=== PATIENT | female | born 1960 | race Caucasian/White ===

== ENCOUNTER 2017-11-18 09:53 | Outpatient (AMBR) | payer MEDICAID, SELFPAY ==
--- NOTE | 2017-11-18 10:07 | PT.OIERPT ---
PT OP Initial Eval Patient Information Visit Reasons: right radius fracture Medical Diagnosis: S52.502 Treatment Dx #1: B radius FX Start of Care: 11/18/17 Date of Onset: 08/02/17 Initial Assessment Subjective Pt is 57 yr old female who tripped in July and fractured B radius' from tripping and falling onto outstretched arms and she passed out. Pt reports continued pain at 7/10 today and she points to the carpal tunnel and thenar region as site of pain and numbness. The R wrist she can move better and make a fist and it hurts less at 5/10. She needs assistance from for most ADL's but can dress herself. 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 Pt has decreased director cardiology strength B and severe TTP of palmar aspect of B wrists, especially around ORIF scar. Eval followed by HEP with materials. Short Term and Intermediate Goals 1. Ind with HEP 2. Improved wrist flexion and extension to 40 deg 3. Improved director cardiology strength to 45lbs 4. Pt will be independent with all ADL's Treatment Plan Pt doesn't have any Rx visits authorized. Pt would benefit from therapy to decrease pain, improve ROM and address aforementioned impairments. 1. Manual therapy 2. Therex 3. Modalities as indicated, moist heat pack, ice, electrical stimulation Frequency and Duration 2x a week for 6 weeks Certification Dates: 11/18/17 to 02/17/18 Office Procedures PT Procedures PT Date of Service: 11/18/17 OP PT Eval Mod Complex 30 minutes: Yes
--- NOTE | 2017-11-18 10:16 | PTNOTE_ITS ---
PT OP Initial Eval Patient Information Visit Reasons: right radius fracture Medical Diagnosis: S52.502 Treatment Dx #1: B radius FX Start of Care: 11/18/17 Date of Onset: 08/02/17 Initial Assessment Subjective Pt is 57 yr old female who tripped in July and fractured B radius' from tripping and falling onto outstretched arms and she passed out. Pt reports continued pain at 7/10 today and she points to the carpal tunnel and thenar region as site of pain and numbness. The R wrist she can move better and make a fist and it hurts less at 5/10. She needs assistance from for most ADL' s but can dress herself. 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 Pt has decreased online content editor strength B and severe TTP of palmar aspect of B wrists, especially around ORIF scar. Eval followed by HEP with materials. Short Term and Halfway Goals 1. Ind with HEP 2. Improved wrist flexion and extension to 40 deg 3. Improved online content editor strength to 45lbs 4. Pt will be independent with all ADL's Treatment Plan Pt doesn't have any Rx visits authorized. Pt would benefit from therapy to decrease pain, improve ROM and address aforementioned impairments. 1. Manual therapy 2. Therex 3. Modalities as indicated, moist heat pack, ice, electrical stimulation Frequency and Duration 2x a week for 6 weeks Certification Dates: 11/18/17 to 02/17/18 Office Procedures PT Procedures PT Date of Service: 11/18/17 OP PT Eval Mod Complex 30 minutes: Yes
== END 2017-11-25 23:59 ==
PROVIDERS: PCP Family Medicine; Referring Provider Family Medicine; Visit Provider Orthopaedic Surgery
DX: S52.92XD Unspecified fracture of left forearm, subsequent encounter for closed fracture with routine healing (principal); X58.XXXD Exposure to other specified factors, subsequent encounter; S52.91XD Unspecified fracture of right forearm, subsequent encounter for closed fracture with routine healing
CPT/HCPCS: 97162

== ENCOUNTER → 2024-05-17 | Outpatient (CLI) | payer MEDICARE, BC, SELFPAY ==
[2024-05-17 15:24] LABS: Collection Type, Urine Clean Catch
[2024-05-17 16:30] LABS: Bilirubin,Urine Negative (Negative); Blood,Urine Negative (Negative); Clarity,Urine Clear (Clear/Hazy); Color,Urine Yellow (Lt Yel-Yel); Glucose, Urine Negative (Negative); Hyaline Casts,Urine < 1 /hpf (0-1); Ketones,Urine Negative (Negative); Leukocyte Esterase,Urine Positive (Negative); Nitrite,Urine Negative (Negative); Protein,Urine Negative (Neg - Trace); RBC,Urine 4 /hpf (0-3); Specific Gravity,Urine 1.022 (1.001-1.035); Squamous Epithelial Cell,Urine < 1 /hpf (0-5); Urobilinogen,Urine Negative mg/dL (0.0-1.0); WBC,Urine 13 /hpf (0-5)
[2024-05-17 16:51] LABS: Culture Indicated,Urine Yes
== END | disposition home or self-care (01) ==
LOC: SLDO 15:17
PROVIDERS: PCP Family Medicine; Referring Provider Family Medicine; Visit Provider Family Medicine
DX: N39.0 Urinary tract infection, site not specified (principal)
CPT/HCPCS: 81001; 87086

== ENCOUNTER 2024-07-03 16:11 | Emergency (ER) | payer MEDICARE, BC, SELFPAY ==
[2024-07-03 16:21] VITALS: BP 116/76; PULSE 95; RESP 18; TEMP 36.8; O2SAT 95
[2024-07-03 16:25] VITALS: BMI 38.8
--- NOTE | 2024-07-03 16:27 | EDRME_ITS ---
Rapid Medical Screening Exam FORMERLY [facility], [facility]–1983 Arrival date/time: 07/03/24 16:11 64-year-old female with a history of spine surgery, asthma presents to the emergency room with a chief complaint of right-sided flank pain and lower back pain x 3 days. Patient denies dysuria or fevers. I have greeted and performed a focused initial assessment of this patient. A comprehensive ED assessment and evaluation of the patient, analysis of all test results, and completion of the medical decision making process will be conducted by additional ED providers. Chief Complaint: Back Pain/Injury Vital signs: Vital Signs Temperature 98.2 F 07/03/24 16:21 Pulse Rate 95 07/03/24 16:21 Respiratory Rate 18 07/03/24 16:21 Blood Pressure 116/76 07/03/24 16:21 Pulse Oximetry (%) 95 07/03/24 16:21 Oxygen Delivery Method Room Air 07/03/24 16:21 Vital signs reviewed by provider: Yes
--- NOTE | 2024-07-03 16:27 | XR_ITS ---
Examination: CT abdomen and pelvis without contrast. Coronal 3-D reconstructions. Sagittal 2-D reconstructions. Date and time of exam:July 03, 2024 1716 hrs. Comparison 03/02/2004 Indications: Onset right flank pain today, history right renal calculi CTDI: vol (mGy): 25.1 DLP: (mGycm): 1432 Technique: Axial images of the abdomen have been obtained, 3 mm slice thickness Intravenous contrast material has not been administered. Low dose protocols were performed. One or more of the following dose reduction techniques were used; automated exposure control, adjustment of the mA and/or KV according to patient size, use of iterative reconstruction technique. Findings: No focal liver or splenic lesions Absent gallbladder No pancreatic or adrenal mass 2 mm posterior right renal calculus Mild to moderate bilateral renal parenchymal scar formation No hydronephrosis or ureteral calculi Thickening along the umbilical tract Normal appendix No bowel obstruction No diverticulitis Contracted urinary bladder No pelvic mass Severe osteopenia with chronic osteoporotic compressions L2, L1, T11, T10 with large lumbar laminectomy Impression: 2 mm posterior nonobstructing right renal calculus, no hydronephrosis or ureteral calculi
[2024-07-03] MEDS: oxyCODONE/APAP 5/325 TABLET 1 TAB PO (16:47)
[2024-07-03 16:55] LABS: Collection Type, Urine Clean Catch
[2024-07-03 16:55] LABS: Basophils # (Auto) 0.1 Thou/mm3 (0.0-0.2); Basophils % (Auto) 1 % (0-2.5); Eosinophils # (Auto) 0.2 Thou/mm3 (0.0-0.5); Eosinophils % (Auto) 3 % (0-10); Hematocrit 41.9 % (36.0-46.0); Hemoglobin 13.4 g/dL (12.0-16.0); Immature Granulocytes % (Auto) 1 % (0-0); Immature Granulocytes Auto 0.03 Thou/mm3 (0.00-0.00); Lymphocytes # (Auto) 2.3 Thou/mm3 (1.0-4.8); Lymphocytes % (Auto) 37 % (10-50); Mean Corpuscular Hemoglobin 32.3 pg (25.0-35.0); Mean Corpuscular Volume 101 fL (80-100); Monocytes # (Auto) 0.7 Thou/mm3 (0.0-0.8); Monocytes % (Auto) 11 % (0-12); Neutrophils # (Auto) 2.9 Thou/mm3 (1.8-7.7); Neutrophils % (Auto) 47 % (37-80); Nucleated Red Blood Cell % 0 /100 WBC (0); Platelet Count 204 Thou/mm3 (140-440); RDW Standard Deviation 51.8 fL (36.4-46.3); Red Blood Count 4.15 Miln/mm3 (4.00-5.20); White Blood Count 6.2 Thou/mm3 (3.6-11.0)
[2024-07-03 17:12] LABS: Alanine Aminotransferase 19 U/L (10-49); Albumin, Serum 4.6 gm/dL (3.4-4.8); Albumin/Globulin Ratio 1.8 (1.2-2.2); Alkaline Phosphatase 92 U/L (46-116); Anion Gap 6 (7-16); Aspartate Amino Transferase 21 U/L (0-34); BUN/Creatinine Ratio 13 Ratio (12-20); Bilirubin,Total 0.3 mg/dL (0.3-1.2); Blood Urea Nitrogen 18 mg/dL (9-23); Calcium 10.2 mg/dL (8.3-10.6); Calcium (Corrected) 10.2 mg/dL (8.5-10.1); Carbon Dioxide 27.9 mMol/L (20.0-31.0); Chloride 105 mMol/L (98-107); Creatinine (Component) 1.4 mg/dL (0.6-1.3); Estimated Creatinine Clearance 51.1 mL/min (>60); Globulin 2.5 gm/dL (2.3-3.5); Glucose 108 mg/dL (74-106); Lipase 23 U/L (12-53); Osmolality,Calculated 280 (275-295); Potassium 5.4 mMol/L (3.4-5.1); Sodium 139 mMol/L (136-145); Total Protein 7.1 gm/dL (5.7-8.2); eGFR 41 See Note
[2024-07-03 17:30] LABS: Bilirubin,Urine Negative (Negative); Blood,Urine Negative (Negative); Clarity,Urine Clear (Clear/Hazy); Color,Urine Yellow (Lt Yel-Yel); Glucose, Urine Negative (Negative); Ketones,Urine Negative (Negative); Leukocyte Esterase,Urine Positive (Negative); Nitrite,Urine Negative (Negative); Protein,Urine Trace (Neg - Trace); RBC,Urine 3 /hpf (0-3); Specific Gravity,Urine 1.026 (1.001-1.035); Squamous Epithelial Cell,Urine 2 /hpf (0-5); Urobilinogen,Urine Negative mg/dL (0.0-1.0); WBC,Urine 19 /hpf (0-5)
--- NOTE | 2024-07-03 19:31 | EDNOTE_ITS ---
ED General RME/HPI General Chief complaint: Back Pain/Injury Stated complaint: BACK/RIGHT FLANK PAIN Time Seen by Provider: 07/03/24 19:13 Arrival date/time: 07/03/24 16:11 CC: Acute on chronic mid to low back pain with redness and irritation under her breasts and her groin area. Patient has pain medication states it has been mildly relieving it but this has been worse in the last 3 days. Patient had back surgery which included extensive rods and screws 1 year ago stated was doing fine up until several weeks ago has an upcoming appointment with a back surgeon in 3 weeks. Patient is motorized scooter bound, is awake alert oriented. Nontoxic-appearing in mild discomfort but not in any acute distress. RME / HPI RME / HPI narrative: 07/03/24 16:11 64-year-old female with a history of spine surgery, asthma presents to the emergency room with a chief complaint of right-sided flank pain and lower back pain x 3 days. Patient denies dysuria or fevers. I have greeted and performed a focused initial assessment of this patient. A comprehensive ED assessment and evaluation of the patient, analysis of all test results, and completion of the medical decision making process will be conducted by additional ED providers. Related Data Home Medications ?Medication ?Instructions ?Recorded ?Confirmed docusate sodium 100 mg capsule 100 mg PO HS 11/07/22 11/07/22 duloxetine 60 mg capsule,delayed 60 mg PO HS 11/07/22 10/29/23 release furosemide 20 mg tablet 20 mg PO DAILY 11/07/22 11/07/22 hydroxyzine HCl 10 mg tablet 10 mg PO TID PRN Anxiety 11/07/22 11/07/22 lubiprostone 8 mcg capsule 8 mcg PO BID PRN constipation 11/07/22 10/29/23 metronidazole 500 mg tablet 500 mg PO BID 11/07/22 11/07/22 nifedipine 30 mg tablet,extended 30 mg PO DAILY 11/07/22 11/07/22 release pantoprazole 20 mg tablet,delayed 40 mg PO DAILY 11/07/22 10/29/23 release potassium chloride 8 mEq 8 meq PO DAILY 11/07/22 10/29/23 capsule,extended release spironolactone 100 mg tablet 100 mg PO DAILY 11/07/22 10/29/23 venlafaxine 150 mg 150 mg PO DAILY 11/07/22 10/29/23 capsule,extended release 24 hr donepezil 5 mg tablet 5 mg PO HS 10/29/23 10/29/23 estradiol 2 mg tablet 2 mg PO QDAY 10/29/23 10/29/23 gabapentin 400 mg capsule mg 10/29/23 levothyroxine 25 mcg tablet mcg 10/29/23 (Synthroid) montelukast 10 mg tablet 10 mg PO HS 10/29/23 10/29/23 oxycodone-acetaminophen 10 mg-325 10 - 325 tab PO Q6HR PRN Pain 10/29/23 10/29/23 mg tablet (Scale Score 4-6) propranolol 10 mg tablet 10 mg PO HS 10/29/23 10/29/23 ropinirole 2 mg tablet 2 mg PO TID 10/29/23 10/30/23 spironolactone 100 mg tablet mg 10/29/23 trazodone 300 mg tablet 300 mg PO HS PRN depression 10/29/23 10/29/23 Previous Rx's ?Medication ?Instructions ?Recorded diphenhydramine HCl 50 mg capsule 50 mg PO Q8H PRN itching #20 caps 12/27/22 polyethylene glycol 3350 17 gram 17 g PO QDAY 30 days #30 ea 10/31/23 oral powder packet (HealthyLax) nystatin 100,000 unit/gram topical 1 applic topical QDAY #60 grams 07/03/24 powder Allergies Allergy/AdvReac Type Severity Reaction Status Date / Time ceftriaxone Allergy Severe SWELLING Verified 04/28/24 18:28 TO LIPS, VOMITING, NAUSEA ibuprofen Allergy Severe SWELLING Verified 04/28/24 18:28 linezolid Allergy Severe ABD Verified 04/28/24 18:28 CRAMPING, N/V/D mushroom Allergy Severe VOMITING Verified 04/28/24 18:28 NSAIDS (Non-Steroidal Allergy Severe SWELLING, Verified 04/28/24 18:28 Anti-Inflamma SOB ondansetron Allergy Severe REDNESS Verified 04/28/24 18:28 AND PAIN AT SITE Penicillins Allergy Severe CAN'T Verified 04/28/24 18:28 BREATHE shellfish derived Allergy Severe Difficulty Verified 04/28/24 18:28 Breathing Sulfa (Sulfonamide Allergy Severe RASH Verified 04/28/24 18:28 Antibiotics) ciprofloxacin [From Cipro] Allergy Intermediate Redness of Verified 04/28/24 18:28 Skin erythromycin base Allergy Intermediate RASH Verified 04/28/24 18:28 doxycycline Allergy Mild Abdominal Verified 04/28/24 18:28 Pain iodine Allergy Mild SOB, Verified 04/28/24 18:28 THROAT SWELLING, HIVES, VOMITING Review of Systems Review of Systems Narrative Review of Systems: GEN: No fever, no chills, no weight loss EYES: No discharge, no visual changes, no pain HEENT: No ear pain, no congestion, no sore throat PULM: No shortness of breath, no cough, no congestion CV: No chest pain, no dyspnea on exertion, no palpitations GI: No nausea, no vomiting, no diarrhea, no pain, no constipation : No frequency, no urgency, no dysuria MUSC/SKEL: No joint pain, chronic back pain SKIN: No rash PSYCH: No hallucinations, no depression HEME/LYMPH: No easy bleeding or bruising tendencies NEURO: No weakness, no headache Past Medical History Past Medical History NEUROLOGIC: Positive Neurological Disorders, Cerebrovascular Accident, Transient Ischemic Attacks (TIA) (per pt recalls having one many years ago), Seizures (over 5 years), Head Trauma and Spinal Cord Injury; Negative Dementia, Alzheimer's Disease, Parkinson's Disease, Brain Tumor, Meningitis, Epilepsy, Multiple Sclerosis, Cerebral Palsy, Amyotrophic Lateral Sclerosis (ALS/Cookie Gehrig's), Guillain-[place] Syndrome, Spina Bifida, Paralysis, Peripheral Neuropathy, Mcknight's Palsy, Subdural Hematoma, Migraine or Traumatic Brain Injury CARDIAC: Positive Edema, Cellulitis, Deep Vein Thrombosis (per pt its been over 5 years) and Hypertension; Negative Cardiac Disorders, Myocardial Infarction, Cardiac Arrhythmia, Atrial Fibrillation, Angina, Heart Murmur, Coronary Artery Disease, Atherosclerotic Heart Disease, Peripheral Vascular Disease, Hypercholesterolemia, Aneurysm, Congestive Heart Failure, Congenital Heart Disease, Valvular Heart Disease, Rheumatic Fever, Cardiomyopathy, Pericarditis, Hypotension or Varicose Veins RESPIRATORY: Positive Asthma (Asthma) and Pneumonia; Negative Chronic Obstructive Pulmonary Disease (COPD), Bronchitis, Emphysema, Pulmonary Fibrosis, Cystic Fibrosis, Tuberculosis, Pulmonary Embolism, Pulmonary Edema or Sleep Apnea GASTROINTESTINAL: Positive Gastrointestinal Disorders, Obstructive Bowel, Hiatal Hernia and Obesity; Negative Hepatitis, Cirrhosis, Pancreatitis, Celiac Disease, Gall Bladder Disease, Gastrointestinal Bleed, Esophageal Varices, Bills's Esophagus, Colitis, Ulcerative Colitis, Diverticulitis, Diverticulosis, Ulcer, Colorectal Cancer, Crohn's Disease, Hemorrhoids or Gastroesophageal Reflux Disease GENITOURINARY: Positive Genitourinary Disorders and Kidney Stones; Negative Renal Disease, Polycystic Kidney Disease, Neurogenic Bladder, Inguinal Hernia, Dialysis, Prostate Cancer or Benign Prostatic Hyperplasia REPRODUCTIVE: Positive Previous Pregnancies; Negative Breast Cancer, Endometriosis, Genital Herpes, Gonorrhea, Pelvic Inflammatory Disease, Syphilis, Testicular Cancer or Uterine Prolapse MUSCULOSKELETAL: Positive Musculoskeletal Disorders, Arthritis, Degenerative Disk Disease, Carpal Tunnel Syndrome, Fibromyalgia and Fractures (back surgeries); Negative Muscular Dystrophy, Myasthenia Gravis, Marfan's Syndrome, Bone Cancer, Rheumatoid Arthritis, Osteoporosis, Gout, Scoliosis, Degenerative Joint Disease, Osteomyelitis or Poliovirus ENT: Positive Head Trauma; Negative Cataracts, Glaucoma, Blind, Retinal Detachment, Macular Degeneration, Ear Infection, Deafness or Eye Prosthesis ENDOCRINE: Positive Hyperthyroidism; Negative Endocrine Disorders, Diabetes Mellitus Type 1, Diabetes Mellitus Type 2, Hypoglycemia, Jared's Syndrome, [place]'s Disease, Hypothyroidism, Parathyroid Disease, Pituitary Disease, Systemic Lupus Erythematosus, Syndrome of Inappropriate Antidiuretic Hormone (SIADH), Adrenal Disease or Graves' Disease HEMATOLOGIC: Positive Blood Disorders, Anemia and Clotting Problems (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); Negative Leukemia, Hemophilia, Thalassemia or Sickle Cell Disease PSYCHO/SOCIAL: Positive Depression and Anxiety; Negative Psychiatric Problems, Schizophrenia, Recreational Drug Use, Bipolar Disorder, Behavior Problems, Self-Mutilation, Attention Deficit Disorder, Attention Deficit Hyperactivity Disorder, Depression, Post Traumatic Stress Disorder or Eating Disorder OTHER HISTORY: Positive Hospitalization, Falls, Blood Transfusions, Chicken Pox, Measles, Mumps and Rubella ([place] Measles); Negative Autoimmune Disease, Down Syndrome, Autism, Developmental Delay, Blood Transfusion Reaction, Anesthesia Reactions, Organ Transplant, Chemotherapy, Radiation Therapy, Hyperbaric Therapy, MRSA, Vancomycin-Resistant Enterococci, Human Immunodeficiency Virus (HIV), Pertussis, Cancer, Breast Cancer, Cervical Cancer, Colorectal Cancer, Lung Cancer, Ovarian Cancer, Prostate Cancer or Testicular Cancer Family History FAMILY HISTORY: Positive Family Psychiatric Problems, Family Respiratory Disorders, Family Cardiac Disorders, Family Gastrointestinal Problems, Family Cancer and Family Surgery; Negative Family Anesthesia Reaction Surgical History SURGICAL: Positive Ear Surgery, Eye Surgery, Abdominal Surgery, Gastric Bypass Surgery, Bowel Surgery, Joint Replacement, Tubal Ligation and Section; Negative Cardiac Surgery, Open Heart Surgery, Coronary Artery Bypass Graft, Valve Replacement, Vascular Surgery, Coronary Stent, Cardiac Catheterization, Pacemaker, Angiogram, Auto Implanted Cardiovert Defib, Carotid Endarterectomy, Endocrine Surgery, Thyroidectomy, Nose Surgery, Oral Surgery, Tonsillectomy, Adenoidectomy, Cochlear Implant, Corneal Transplant, Throat Surgery, Tracheostomy, Gastrostomy, Nephrectomy, Transurethral Resection, Amputation, Open Reduction Internal Fixation, Arthroscopy, Neurologic Surgery, Brain Shunt, Mastectomy, Lumpectomy, Hysterectomy or Organ Transplant Social History SMOKING STATUS: Never smoker SECOND HAND EXPOSURE: No SUBSTANCE USE: does not use ED Exam Narrative Physical exam: [General: Obese in mild discomfort but not in any acute distress Head normocephalic HEENT: Eyes pupils are PERRLA EOMs are intact all other subsystems within acceptable limits Neck is supple nontender Chest equal chest rise nontender to palpation Respiratory: Clear to auscultation no wheezes crackles or rubs CV: Rate rhythm is regular no murmurs rubs or clicks Abdomen is distended secondary to body habitus soft nontender no masses positive bowel sounds all 4 quadrants Back: No CVA tenderness no spinous process tenderness from cervical spine thoracic and lumbar spine Skin: Erythema edema under both breasts and in the groin area particularly in the folds between the leg and the torso. Back surgical scars clean dry and intact. Otherwise skin is intact no petechiae rash induration ulceration or crepitus Extremities: Moving upper extremities without complication lower extremity the patient is scooter bound, she is able to raise the legs but not without significant back pain. Neurosensory intact in all extremities. Neuro: Awake alert oriented x3 Glascow coma 15 no focal deficits] Course Quality Measures none Orders Category Date Time Status CT abdomen pelvis wo con Stat Exams 07/03/24 16:27 Completed CBC Stat Lab 07/03/24 16:42 Completed CMP [Comprehensive Metabolic Panel] Stat Lab 07/03/24 16:42 Completed Lipase Stat Lab 07/03/24 16:42 Completed UA [Urinalysis] Stat Lab 07/03/24 16:49 Completed Urine Culture Stat Lab 07/03/24 16:49 Received oxyCODONE*/APAP 5/325 ASD [Percocet 5/325] Med 07/03/24 16:27 Discontinued 1 tab PO X1 ONE oxyCODONE/APAP 5/325 [Percocet 5/325] Med 07/03/24 16:36 Discontinued 1 tab PO X1 ONE Vital Signs Vital signs: Vital Signs Temperature 98.2 F 07/03/24 16:21 Pulse Rate 95 07/03/24 16:21 Respiratory Rate 18 07/03/24 16:21 Blood Pressure 116/76 07/03/24 16:21 Pulse Oximetry (%) 95 07/03/24 16:21 Oxygen Delivery Method Room Air 07/03/24 16:21 [facility] Patient data External records reviewed:: [facility] [place] previous records Clinical information provided by:: patient Social determinants that could affect healthcare access:: none Patient has the following chronic illnesses:: Spine surgery hypothyroidism How is presenting disease/condition affected by chronic disease/condition?: e xacerbated by Evaluation data The following diagnostics were reviewed and interpreted by me:: lab results and radiology exam(s) Lab and/or radiology exams considered but not ordered:: CBC shows no acute leukocytosis anemia thrombocytopenia CMP shows a sodium 139 potassium of 5.4 chloride of 105 CO2 of 27.9 BUN of 18 creatinine 1.4 with a glucose of 108. No transaminitis T. bili elevation Lipase is normal Urine is negative sure CT is interpreted by radiology shows a 2 mm nonobstructive stone in the renal pelvis no other acute finding requires emergent or immediate intervention. Interpretation Summary: Chronic back pain, yeast infection Medications Medications considered but not ordered:: None Medication administrations:: Medication Administration History Discontinued Medications Oxycodone/Acetaminophen (Oxycodone/Apap 5/325 Tab (Asd)) 1 tab PO X1 ONE Stop: 07/03/24 16:28 Last Admin: 07/03/24 16:41 Dose: Not Given Documented By: TONYA Non-Admin Reason: Discontinued Oxycodone/Acetaminophen (Oxycodone/Apap 5/325 Tablet) 1 tab PO X1 ONE Stop: 07/03/24 16:37 Last Admin: 07/03/24 16:47 Dose: 1 tab Documented By: TONYA None Consultations Consultation(s) initiated? (list below): No Diagnosis Differential Diagnosis ED Complaint MDM: UTI electrolyte imbalance with chronic pain Most likely diagnosis given after review of the tests above:: Chronic pain yeast infection Admission Indicated Admission indicated?: not indicated Explain why admission is indicated or not indicated:: Stable for outpatient follow-up Admission Request Was there a request for admission?: No Disposition Plan Disposition Plan: Discharge Discharge Attestation Discharge Attestation: The patient and all family members were given an opportunity to ask questions and understood the discharge instructions. Discharge instructions specifically effects, indications for sooner follow up or return to the emergency department, and the expected course of current diagnosis. Patient condition: Stable Medical Decision Making Differential Diagnosis Differential Diagnosis: UTI electrolyte imbalance with chronic pain Lab Data 07/03/24 16:42 07/03/24 16:42 Labs: Lab Results 07/03/24 07/03/24 Range/Units 16:42 16:49 WBC 6.2 (3.6-11.0) Thou/mm3 RBC 4.15 (4.00-5.20) Miln/mm3 Hgb 13.4 (12.0-16.0) g/dL Hct 41.9 (36.0-46.0) % MCV 101 H (80-100) fL MCH 32.3 (25.0-35.0) pg MCHC 32.0 (31.0-37.0) g/dl RDW Std Deviation 51.8 H (36.4-46.3) fL Plt Count 204 (140-440) Thou/mm3 Neut % (Auto) 47 (37-80) % Lymph % (Auto) 37 (10-50) % Oliver % (Auto) 11 (0-12) % Eos % (Auto) 3 (0-10) % Baso % (Auto) 1 (0-2.5) % Neut # (Auto) 2.9 (1.8-7.7) Thou/mm3 Lymph # (Auto) 2.3 (1.0-4.8) Thou/mm3 Oliver # (Auto) 0.7 (0.0-0.8) Thou/mm3 Eos # (Auto) 0.2 (0.0-0.5) Thou/mm3 Baso # (Auto) 0.1 (0.0-0.2) Thou/mm3 Immature Gran # (Auto) 0.03 H (0.00-0.00) Thou/mm3 Absolute Nucleated RBC 0.00 (0.00-0.00) Thou/mm3 Immature Gran % 1 H (0-0) % Nucleated RBC % 0 (0) /100 WBC Sodium 139 (136-145) mMol/L Potassium 5.4 H (3.4-5.1) mMol/L Chloride 105 (98-107) mMol/L Carbon Dioxide 27.9 (20.0-31.0) mMol/L Anion Gap 6 L (7-16) BUN 18 (9-23) mg/dL Creatinine 1.4 H (0.6-1.3) mg/dL Estim Creat Clear Calc 51.1 L (>60) mL/min eGFR 41 L (60 - ) See Note BUN/Creatinine Ratio 13 (12-20) Ratio Glucose 108 H (74-106) mg/dL Calculated Osmolality 280 (275-295) Calcium 10.2 (8.3-10.6) mg/dL Corrected Calcium 10.2 H (8.5-10.1) mg/dL Total Bilirubin 0.3 (0.3-1.2) mg/dL AST 21 (0-34) U/L ALT 19 (10-49) U/L Alkaline Phosphatase 92 (46-116) U/L Total Protein 7.1 (5.7-8.2) gm/dL Albumin 4.6 (3.4-4.8) gm/dL Globulin 2.5 (2.3-3.5) gm/dL Albumin/Globulin Ratio 1.8 (1.2-2.2) Lipase 23 (12-53) U/L Ur Collection Type Clean Catch Urine Color Yellow (Lt Yel-Yel) Urine Clarity Clear (Clear/Hazy) Urine pH 6.0 (5.0-7.0) Ur Specific [place] 1.026 (1.001-1.035) Urine Protein Trace (Neg - Trace) Urine Glucose (UA) Negative (Negative) Urine Ketones Negative (Negative) Urine Blood Negative (Negative) Urine Nitrite Negative (Negative) Urine Bilirubin Negative (Negative) Urine Urobilinogen (Auto) Negative (0.0-1.0) mg/dL Ur Leukocyte Esterase Positive (Negative) Urine RBC 3 (0-3) /hpf Urine WBC 19 H (0-5) /hpf Ur Squamous Epith Cells 2 (0-5) /hpf Urine Bacteria None (None) Discharge Plan Plan Patient Disposition: HOME (Self Care) Patient condition on transfer: Stable Prescriptions/Referrals Prescriptions/Med Rec: New nystatin 100,000 unit/gram powder 1 applic topical QDAY Qty: 60 1RF No Action diphenhydramine HCl 50 mg capsule 50 mg PO Q8H PRN (Reason: itching) Qty: 20 0RF estradiol 2 mg tablet 2 mg PO QDAY Patient Comments: take 1 tablet by mouth once daily trazodone 300 mg tablet 300 mg PO HS PRN (Reason: depression) propranolol 10 mg tablet 10 mg PO HS Patient Comments: take 1 tablet by mouth once daily for TREMORS montelukast 10 mg tablet 10 mg PO HS donepezil 5 mg tablet 5 mg PO HS gabapentin 400 mg capsule Patient Comments: take 1 capsule by mouth every 8 hours if needed for NEUROPATHY oxycodone-acetaminophen 10-325 mg tablet 10 - 325 tab PO Q6HR PRN (Reason: Pain (Scale Score 4-6)) Patient Comments: take 1 tablet by mouth three times a day to four times a day if needed for 30 DAYS ropinirole 2 mg tablet 2 mg PO TID Patient Comments: take 1 tablet by mouth three times a day spironolactone 100 mg tablet Patient Comments: take 1 tablet by mouth once daily levothyroxine [Synthroid] 25 mcg tablet Patient Comments: take 1 tablet by mouth once daily polyethylene glycol 3350 [HealthyLax] 17 gram Powder In Packet 17 g PO QDAY 30 Days Qty: 30 12RF potassium chloride 8 mEq capsule, extended release 8 meq PO DAILY metronidazole 500 mg tablet 500 mg PO BID furosemide 20 mg tablet 20 mg PO DAILY hydroxyzine HCl 10 mg tablet 10 mg PO TID PRN (Reason: Anxiety) venlafaxine 150 mg capsule,extended release 24hr 150 mg PO DAILY Patient Comments: TAKE 1 CAPSULE BY MOUTH EVERY DAY nifedipine 30 mg tablet extended release 30 mg PO DAILY Patient Comments: TAKE 1 TABLET BY MOUTH EVERY DAY lubiprostone 8 mcg capsule 8 mcg PO BID PRN (Reason: constipation ) Patient Comments: TAKE 1 CAPSULE BY MOUTH TWICE A DAY WITH FOOD & WITH WATER spironolactone 100 mg tablet 100 mg PO DAILY Patient Comments: TAKE 1 TABLET BY MOUTH EVERY DAY pantoprazole 20 mg tablet,delayed release (DR/EC) 40 mg PO DAILY Patient Comments: TAKE 2 TABLETS BY MOUTH EVERY DAY NEEDED FOR ACID REFLUX docusate sodium 100 mg capsule 100 mg PO HS Patient Comments: TAKE 1 CAPSULE BY MOUTH EVERY DAY AT BEDTIME NEEDED duloxetine 60 mg capsule,delayed release(DR/EC) 60 mg PO HS Patient Comments: TAKE ONE CAPSULE BY MOUTH ONCE IN THE EVENING. Referrals: Ronda Panchal MD [Primary Care Provider] - In 1 week Problem List Clinical Impression: Chronic back pain, Candidiasis Patient/Caregiver Discharge Instructions Education Materials: ED Back Pain (Acute or Chronic), Candidiasis Vaginal Print Language: [place] Stand Alone Forms: Shana Award Info., Patient Portal Info Letter PA/MOLDING LINE ASSISTANT Supervising Physician PA/MOLDING LINE ASSISTANT Supervising Physician: Michael Lock ENP
== END 2024-07-03 20:11 | disposition home or self-care (01) ==
PROVIDERS: Nurse Practitioner Family; Emergency Provider Emergency Medicine; PCP Family Medicine
DX: N20.0 Calculus of kidney (principal); B37.9 Candidiasis, unspecified; M54.50 Low back pain, unspecified; G89.29 Other chronic pain
CPT/HCPCS: 36415; 74176; 80053; 81001; 83690; 85025; 87086; 99284; A9270

== ENCOUNTER → 2024-09-01 | Outpatient (CLI) | payer MEDICARE, BC, SELFPAY ==
[2024-09-01 16:22] LABS: Amphetamine/Methamp Scrn,U Negative (Negative); Barbiturate Screen,Urine Negative (Negative); Benzodiazepines Screen,Urine Negative (Negative); Benzoylecgonine Screen, Ur Negative (Negative); Fentanyl Screen,Urine Negative (Negative); Opiate Screen,Urine Positive (Negative); THC Screen,Urine Negative (Negative)
== END | disposition home or self-care (01) ==
PROVIDERS: PCP Family Medicine; Referring Provider Family Medicine; Visit Provider Family Medicine
DX: Z79.891 Long term (current) use of opiate analgesic (principal)
CPT/HCPCS: 80307

== ENCOUNTER → 2024-09-01 | Outpatient (CLI) | payer MEDICARE, BC, SELFPAY ==
--- NOTE | 2024-09-01 08:30 | XR_ITS ---
Examination: Screening digital mammography, bilateral Computer aided detection 3-D breast Tomosynthesis, bilateral Date and time of exam: September 01, 20242018 hours Compared to mammograms dating to March 30, 2009 Indication: Screening, patient states left breast pain 8 months, history left breast surgery negative biopsy Technique: Nonmagnified MLO, CC views of the breasts to been obtained, reconstructed from 3-D Tomosynthesis images. R2 computer aided detection program utilized for evaluation of suspicious masses and/or abnormal calcifications. 3-D Tomosynthesis images obtained. Findings: Scattered areas of fibroglandular density. Benign calcifications. No interval suspicious masses Impression: BI-RADS category II: Benign Findings. Recommend 1 year follow-up mammogram. Given the patient's presentation, recommend bilateral breast sonography follow-up
== END | disposition home or self-care (01) ==
PROVIDERS: Referring Provider Family Medicine; Visit Provider Family Medicine
DX: Z12.31 Encounter for screening mammogram for malignant neoplasm of breast (principal); R92.323 Mammographic fibroglandular density, bilateral breasts; R92.1 Mammographic calcification found on diagnostic imaging of breast
CPT/HCPCS: 77063; 77067

== ENCOUNTER → 2024-09-22 | Outpatient (CLI) | payer MEDICARE, BC, SELFPAY ==
--- NOTE | 2024-09-22 12:58 | XR_ITS ---
Examination: Shoulder,right, 3 views Technique: Shoulder AP internal rotation, AP external rotation, Y view shoulder, 3 views Exam date and time :September 14, 2024 1338 hours INDICATIONS: Right shoulder pain beginning 7 months ago FINDINGS: Moderate osteopenia Mild narrowing glenohumeral joint No fracture or shoulder dislocation IMPRESSION: Mild narrowing glenohumeral joint
== END | disposition home or self-care (01) ==
LOC: CDIM 12:53
PROVIDERS: PCP Family Medicine; Referring Provider Family Medicine; Visit Provider Family Medicine
DX: M25.811 Other specified joint disorders, right shoulder (principal)
CPT/HCPCS: 73030

== ENCOUNTER → 2024-10-03 | Outpatient (CLI) | payer MEDICARE, BC, SELFPAY ==
[2024-10-03 15:43] LABS: Collection Type, Urine Clean Catch
[2024-10-03 17:02] LABS: Bilirubin,Urine Negative (Negative); Blood,Urine Negative (Negative); Clarity,Urine Clear (Clear/Hazy); Color,Urine Lt-Yellow (Lt Yel-Yel); Glucose, Urine Negative (Negative); Ketones,Urine Negative (Negative); Leukocyte Esterase,Urine Positive (Negative); Nitrite,Urine Negative (Negative); PH,Urine 6.5 (5.0-7.0); Protein,Urine Negative (Neg - Trace); RBC,Urine 1 /hpf (0-3); Specific Gravity,Urine 1.014 (1.001-1.035); Squamous Epithelial Cell,Urine < 1 /hpf (0-5); Urobilinogen,Urine Negative mg/dL (0.0-1.0); WBC,Urine 3 /hpf (0-5)
== END | disposition home or self-care (01) ==
LOC: COPL 15:36
PROVIDERS: PCP Family Medicine; Referring Provider Physician Assistant; Visit Provider Physician Assistant
DX: N39.0 Urinary tract infection, site not specified (principal)
CPT/HCPCS: 81001; 87086

== ENCOUNTER 2024-10-04 19:18 | Emergency (ER) | payer MEDICARE, BC, SELFPAY ==
[2024-10-04 19:19] VITALS: BMI 41.9
--- NOTE | 2024-10-04 19:29 | EKG_ITS ---
[facility] Test Date: 2024-10-04 Pat Name: ARON CACERES Department: Room: - Gender: Female Machine Maintenance: : 1960 Requested By: Krishna Green Order Number: [id number] Reading MD: Krishna Green Measurements Intervals Twining Rate: 74 P: -67 OR: 133 QRS: 58 QRSD: 88 T: -5 QT: 373 QTc: 415 Interpretive Statements JUNCTIONAL RHYTHM LOW QRS VOLTAGE IN PRECORDIAL LEADS [QRS DEFLECTION < 1.0 mV IN CHEST LEADS] POSSIBLE RIGHT VENTRICULAR CONDUCTION DELAY [RSR (QR) IN V1/V2] POSSIBLE ANTERIOR MYOCARDIAL INFARCTION , PROBABLY OLD [30 ms Q WAVE IN V3/V4, OR R < 0.2 mV IN V4] ABNORMAL RHYTHM ECG Compared to ECG 12/08/2023 12:40:35 Junctional rhythm now present Low QRS voltage now present Myocardial infarct finding now present Sinus rhythm no longer present /store/S0/[id number]
[2024-10-04 19:30] VITALS: BP 139/93; PULSE 74; RESP 20; TEMP 36.7; O2SAT 98
--- NOTE | 2024-10-04 20:02 | XR_ITS ---
Examination: PA chest single view Technique: Upright PA chest single view Exam date and time: October 02, 2024 2017 hrs. Comparison 03/10/2024 Indications: Right-sided chest pain radiating to the abdomen today. Findings: Normal heart size Bilateral subsegmental atelectasis Mild to moderate elevation right hemidiaphragm No pneumonia or pulmonary edema Extensive transpedicular orthopedic hardware overlying thoracic lumbar spine Impression: Bilateral subsegmental atelectasis No pneumonia or pulmonary edema
--- NOTE | 2024-10-04 20:03 | PD.EDADULT ---
ED General RME/HPI General Chief complaint: Back Pain/Injury Stated complaint: RT SIDE BACK PAIN RADIATES TO UPPER ABD Time Seen by Provider: 10/04/24 19:50 Arrival date/time: 10/04/24 19:18 CC: Right-sided back pain, HPI onset 2 days ago progressive increase in severity that she has a recurrence of the same right sided back pain that radiates to the front and under the breast. Patient has chronic back pain issues and has had multiple back surgeries. She is awake alert oriented with a large number of allergies. Patient is nontoxic-appearing at this time Related Data Home Medications ?Medication ?Instructions ?Recorded ?Confirmed docusate sodium 100 mg capsule 100 mg PO HS 11/07/22 11/07/22 duloxetine 60 mg capsule,delayed 60 mg PO HS 11/07/22 10/29/23 release furosemide 20 mg tablet 20 mg PO DAILY 11/07/22 11/07/22 hydroxyzine HCl 10 mg tablet 10 mg PO TID PRN Anxiety 11/07/22 11/07/22 lubiprostone 8 mcg capsule 8 mcg PO BID PRN constipation 11/07/22 10/29/23 metronidazole 500 mg tablet 500 mg PO BID 11/07/22 11/07/22 nifedipine 30 mg tablet,extended 30 mg PO DAILY 11/07/22 11/07/22 release pantoprazole 20 mg tablet,delayed 40 mg PO DAILY 11/07/22 10/29/23 release potassium chloride 8 mEq 8 meq PO DAILY 11/07/22 10/29/23 capsule,extended release spironolactone 100 mg tablet 100 mg PO DAILY 11/07/22 10/29/23 venlafaxine 150 mg 150 mg PO DAILY 11/07/22 10/29/23 capsule,extended release 24 hr donepezil 5 mg tablet 5 mg PO HS 10/29/23 10/29/23 estradiol 2 mg tablet 2 mg PO QDAY 10/29/23 10/29/23 gabapentin 400 mg capsule mg 10/29/23 levothyroxine 25 mcg tablet mcg 10/29/23 (Synthroid) montelukast 10 mg tablet 10 mg PO HS 10/29/23 10/29/23 oxycodone-acetaminophen 10 mg-325 10 - 325 tab PO Q6HR PRN Pain 10/29/23 10/29/23 mg tablet (Scale Score 4-6) propranolol 10 mg tablet 10 mg PO HS 10/29/23 10/29/23 ropinirole 2 mg tablet 2 mg PO TID 10/29/23 10/30/23 spironolactone 100 mg tablet mg 10/29/23 trazodone 300 mg tablet 300 mg PO HS PRN depression 10/29/23 10/29/23 Previous Rx's ?Medication ?Instructions ?Recorded diphenhydramine HCl 50 mg capsule 50 mg PO Q8H PRN itching #20 caps 12/27/22 polyethylene glycol 3350 17 gram 17 g PO QDAY 30 days #30 ea 10/31/23 oral powder packet (HealthyLax) nystatin 100,000 unit/gram topical 1 applic topical QDAY #60 grams 07/03/24 powder Allergies Allergy/AdvReac Type Severity Reaction Status Date / Time ceftriaxone Allergy Severe SWELLING Verified 04/28/24 18:28 TO LIPS, VOMITING, NAUSEA ibuprofen Allergy Severe SWELLING Verified 04/28/24 18:28 linezolid Allergy Severe ABD Verified 04/28/24 18:28 CRAMPING, N/V/D mushroom Allergy Severe VOMITING Verified 04/28/24 18:28 NSAIDS (Non-Steroidal Allergy Severe SWELLING, Verified 04/28/24 18:28 Anti-Inflamma SOB ondansetron Allergy Severe REDNESS Verified 04/28/24 18:28 AND PAIN AT SITE Penicillins Allergy Severe CAN'T Verified 04/28/24 18:28 BREATHE shellfish derived Allergy Severe Difficulty Verified 04/28/24 18:28 Breathing Sulfa (Sulfonamide Allergy Severe RASH Verified 04/28/24 18:28 Antibiotics) ciprofloxacin (From Cipro) Allergy Intermediate Redness of Verified 04/28/24 18:28 Skin erythromycin base Allergy Intermediate RASH Verified 04/28/24 18:28 doxycycline Allergy Mild Abdominal Verified 04/28/24 18:28 Pain iodine Allergy Mild SOB, Verified 04/28/24 18:28 THROAT SWELLING, HIVES, VOMITING Review of Systems Review of Systems Narrative Review of Systems: GEN: No fever, no chills, no weight loss EYES: No discharge, no visual changes, no pain HEENT: No ear pain, no congestion, no sore throat PULM: No shortness of breath, no cough, no congestion CV: No chest pain, no dyspnea on exertion, no palpitations GI: No nausea, no vomiting, no diarrhea, no pain, no constipation : No frequency, no urgency, no dysuria MUSC/SKEL: No joint pain, + back pain SKIN: No rash PSYCH: No hallucinations, no depression HEME/LYMPH: No easy bleeding or bruising tendencies NEURO: No weakness, no headache Past Medical History Past Medical History NEUROLOGIC: Positive Neurological Disorders, Cerebrovascular Accident, Transient Ischemic Attacks (TIA) (per pt recalls having one many years ago), Seizures (over 5 years), Head Trauma and Spinal Cord Injury; Negative Dementia, Alzheimer's Disease, Parkinson's Disease, Brain Tumor, Meningitis, Epilepsy, Multiple Sclerosis, Cerebral Palsy, Amyotrophic Lateral Sclerosis (ALS/Cookie Gehrig's), Guillain-[place] Syndrome, Spina Bifida, Paralysis, Peripheral Neuropathy, Mcknight's Palsy, Subdural Hematoma, Migraine or Traumatic Brain Injury CARDIAC: Positive Edema, Cellulitis, Deep Vein Thrombosis (per pt its been over 5 years) and Hypertension; Negative Cardiac Disorders, Myocardial Infarction, Cardiac Arrhythmia, Atrial Fibrillation, Angina, Heart Murmur, Coronary Artery Disease, Atherosclerotic Heart Disease, Peripheral Vascular Disease, Hypercholesterolemia, Aneurysm, Congestive Heart Failure, Congenital Heart Disease, Valvular Heart Disease, Rheumatic Fever, Cardiomyopathy, Pericarditis, Hypotension or Varicose Veins RESPIRATORY: Positive Asthma (Asthma) and Pneumonia; Negative Chronic Obstructive Pulmonary Disease (COPD), Bronchitis, Emphysema, Pulmonary Fibrosis, Cystic Fibrosis, Tuberculosis, Pulmonary Embolism, Pulmonary Edema or Sleep Apnea GASTROINTESTINAL: Positive Gastrointestinal Disorders, Obstructive Bowel, Hiatal Hernia and Obesity; Negative Hepatitis, Cirrhosis, Pancreatitis, Celiac Disease, Gall Bladder Disease, Gastrointestinal Bleed, Esophageal Varices, Bills's Esophagus, Colitis, Ulcerative Colitis, Diverticulitis, Diverticulosis, Ulcer, Colorectal Cancer, Crohn's Disease, Hemorrhoids or Gastroesophageal Reflux Disease GENITOURINARY: Positive Genitourinary Disorders and Kidney Stones; Negative Renal Disease, Polycystic Kidney Disease, Neurogenic Bladder, Inguinal Hernia, Dialysis, Prostate Cancer or Benign Prostatic Hyperplasia REPRODUCTIVE: Positive Previous Pregnancies; Negative Breast Cancer, Endometriosis, Genital Herpes, Gonorrhea, Pelvic Inflammatory Disease, Syphilis, Testicular Cancer or Uterine Prolapse MUSCULOSKELETAL: Positive Musculoskeletal Disorders, Arthritis, Degenerative Disk Disease, Carpal Tunnel Syndrome, Fibromyalgia and Fractures (back surgeries); Negative Muscular Dystrophy, Myasthenia Gravis, Marfan's Syndrome, Bone Cancer, Rheumatoid Arthritis, Osteoporosis, Gout, Scoliosis, Degenerative Joint Disease, Osteomyelitis or Poliovirus ENT: Positive Head Trauma; Negative Cataracts, Glaucoma, Blind, Retinal Detachment, Macular Degeneration, Ear Infection, Deafness or Eye Prosthesis ENDOCRINE: Positive Hyperthyroidism; Negative Endocrine Disorders, Diabetes Mellitus Type 1, Diabetes Mellitus Type 2, Hypoglycemia, Mccaskill's Syndrome, [place]'s Disease, Hypothyroidism, Parathyroid Disease, Pituitary Disease, Systemic Lupus Erythematosus, Syndrome of Inappropriate Antidiuretic Hormone (SIADH), Adrenal Disease or Graves' Disease HEMATOLOGIC: Positive Blood Disorders, Anemia and Clotting Problems (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); Negative Leukemia, Hemophilia, Thalassemia or Sickle Cell Disease PSYCHO/SOCIAL: Positive Depression and Anxiety; Negative Psychiatric Problems, Schizophrenia, Recreational Drug Use, Bipolar Disorder, Behavior Problems, Self-Mutilation, Attention Deficit Disorder, Attention Deficit Hyperactivity Disorder, Depression, Post Traumatic Stress Disorder or Eating Disorder OTHER HISTORY: Positive Hospitalization, Falls, Blood Transfusions, Chicken Pox, Measles, Mumps and Rubella ([place] Measles); Negative Autoimmune Disease, Down Syndrome, Autism, Developmental Delay, Blood Transfusion Reaction, Anesthesia Reactions, Organ Transplant, Chemotherapy, Radiation Therapy, Hyperbaric Therapy, MRSA, Vancomycin-Resistant Enterococci, Human Immunodeficiency Virus (HIV), Pertussis, Cancer, Breast Cancer, Cervical Cancer, Colorectal Cancer, Lung Cancer, Ovarian Cancer, Prostate Cancer or Testicular Cancer Family History FAMILY HISTORY: Positive Family Psychiatric Problems, Family Respiratory Disorders, Family Cardiac Disorders, Family Gastrointestinal Problems, Family Cancer and Family Surgery; Negative Family Anesthesia Reaction Surgical History SURGICAL: Positive Ear Surgery, Eye Surgery, Abdominal Surgery, Gastric Bypass Surgery, Bowel Surgery, Joint Replacement, Tubal Ligation and Section; Negative Cardiac Surgery, Open Heart Surgery, Coronary Artery Bypass Graft, Valve Replacement, Vascular Surgery, Coronary Stent, Cardiac Catheterization, Pacemaker, Angiogram, Auto Implanted Cardiovert Defib, Carotid Endarterectomy, Endocrine Surgery, Thyroidectomy, Nose Surgery, Oral Surgery, Tonsillectomy, Adenoidectomy, Cochlear Implant, Corneal Transplant, Throat Surgery, Tracheostomy, Gastrostomy, Nephrectomy, Transurethral Resection, Amputation, Open Reduction Internal Fixation, Arthroscopy, Neurologic Surgery, Brain Shunt, Mastectomy, Lumpectomy, Hysterectomy or Organ Transplant Social History SMOKING STATUS: Never smoker SECOND HAND EXPOSURE: No SUBSTANCE USE: does not use ED Exam Narrative Physical exam: [General: Morbidly obese in moderate discomfort but not in any acute distress Head normocephalic HEENT: Within acceptable limits Neck is supple nontender Chest equal chest rise nontender to palpation Respiratory: Clear to auscultation no wheezes crackles or rubs CV: Rate rhythm is regular no murmurs rubs or clicks Abdomen is distended secondary to body habitus soft nontender no masses positive bowel sounds all 4 quadrants Back: No CVA tenderness no spinous process tenderness from cervical spine thoracic and lumbar spine Skin: Intact no petechiae rash induration ulceration or crepitus Extremities: Moving upper extremities without complication lower extremities 3/5 strength. Patient is electric scooter bound. Neuro: Awake alert oriented x3 Glascow coma 15 no focal deficits] Course Quality Measures none Orders Category Date Time Status EKG (ED ONLY) *Do not use* NOW Care 10/04/24 19:29 Completed EKG (ED Only) Stat Exams 10/04/24 19:29 Draft XR chest 1V Stat Exams 10/04/24 20:02 Completed CBC Stat Lab 10/04/24 20:28 Completed CMP [Comprehensive Metabolic Panel] Stat Lab 10/04/24 20:28 Completed oxyCODONE/APAP 5/325 [Percocet 5/325] Med 10/04/24 20:02 Discontinued 2 tab PO X1 ONE Vital Signs Vital signs: Vital Signs Temperature 98.0 F 10/04/24 19:30 Pulse Rate 74 10/04/24 19:30 Respiratory Rate 20 10/04/24 19:30 Blood Pressure 139/93 H 10/04/24 19:30 Pulse Oximetry (%) 98 10/04/24 19:30 Oxygen Delivery Method Room Air 10/04/24 19:30 [facility] Patient data External records reviewed:: [facility] previous records Clinical information provided by:: patient and EMS Social determinants that could affect healthcare access:: none Patient has the following chronic illnesses:: Chronic back pain chronic pain How is presenting disease/condition affected by chronic disease/condition?: exacerbated by Evaluation data The following diagnostics were reviewed and interpreted by me:: lab results and radiology exam(s) Lab and/or radiology exams considered but not ordered:: Chest x-ray shows no acute finding requires emergent or immediate intervention as interpreted by me read by radiology. CBC shows no acute leukocytosis anemia thrombocytopenia CMP shows a creatinine of 1.4 otherwise no other electrolyte imbalances renal impairment transaminitis or T. bili elevation. Interpretation Summary: Patient has acute on chronic known back pain with exacerbation. Medications Medications considered but not ordered:: None Medication administrations:: Medication Administration History Discontinued Medications Oxycodone/Acetaminophen (Oxycodone/Apap 5/325 Tablet) 2 tab PO X1 ONE Stop: 10/04/24 20:03 Last Admin: 10/04/24 20:10 Dose: 2 tab Documented By: AGATHA None Consultations Consultation(s) initiated? (list below): No Diagnosis Differential Diagnosis ED Complaint MDM: Pneumonia back spasm chronic back pain Most likely diagnosis given after review of the tests above:: Acute on chronic back pain Admission Indicated Admission indicated?: not indicated Explain why admission is indicated or not indicated:: Stable for discharge Admission Request Was there a request for admission?: No Disposition Plan Disposition Plan: Discharge Discharge Attestation Discharge Attestation: The patient and all family members were given an opportunity to ask questions and understood the discharge instructions. Discharge instructions specifically effects, indications for sooner follow up or return to the emergency department, and the expected course of current diagnosis. Patient condition: Stable Medical Decision Making Differential Diagnosis Differential Diagnosis: Pneumonia back spasm chronic back pain Lab Data 10/04/24 20:28 10/04/24 20:28 Labs: Lab Results 10/04/24 Range/Units 20:28 WBC 6.0 (3.6-11.0) Thou/mm3 RBC 4.13 (4.00-5.20) Miln/mm3 Hgb 13.5 (12.0-16.0) g/dL Hct 41.1 (36.0-46.0) % MCV 100 (80-100) fL MCH 32.7 (25.0-35.0) pg MCHC 32.8 (31.0-37.0) g/dl RDW Std Deviation 49.6 H (36.4-46.3) fL Plt Count 202 (140-440) Thou/mm3 Neut % (Auto) 41 (37-80) % Lymph % (Auto) 43 (10-50) % [place] % (Auto) 12 (0-12) % Eos % (Auto) 4 (0-10) % Baso % (Auto) 1 (0-2.5) % Neut # (Auto) 2.5 (1.8-7.7) Thou/mm3 Lymph # (Auto) 2.6 (1.0-4.8) Thou/mm3 [place] # (Auto) 0.7 (0.0-0.8) Thou/mm3 Eos # (Auto) 0.2 (0.0-0.5) Thou/mm3 Baso # (Auto) 0.0 (0.0-0.2) Thou/mm3 Immature Gran # (Auto) 0.03 H (0.00-0.00) Thou/mm3 Absolute Nucleated RBC 0.00 (0.00-0.00) Thou/mm3 Immature Gran % 1 H (0-0) % Nucleated RBC % 0 (0) /100 WBC Sodium 139 (136-145) mMol/L Potassium 4.9 (3.4-5.1) mMol/L Chloride 105 (98-107) mMol/L Carbon Dioxide 26.5 (20.0-31.0) mMol/L Anion Gap 8 (7-16) BUN 21 (9-23) mg/dL Creatinine 1.4 H (0.6-1.3) mg/dL Estim Creat Clear Calc 51.6 L (>60) mL/min eGFR 41 L (60 - ) See Note BUN/Creatinine Ratio 15 (12-20) Ratio Glucose 98 (74-106) mg/dL Calculated Osmolality 280 (275-295) Calcium 10.4 (8.3-10.6) mg/dL Corrected Calcium 10.4 H (8.5-10.1) mg/dL Total Bilirubin 0.4 (0.3-1.2) mg/dL AST 23 (0-34) U/L ALT 21 (10-49) U/L Alkaline Phosphatase 84 (46-116) U/L Total Protein 7.2 (5.7-8.2) gm/dL Albumin 4.5 (3.4-4.8) gm/dL Globulin 2.7 (2.3-3.5) gm/dL Albumin/Globulin Ratio 1.7 (1.2-2.2) Discharge Plan Plan Patient Disposition: HOME (Self Care) Patient condition on transfer: Stable Prescriptions/Referrals Prescriptions/Med Rec: No Action diphenhydramine HCl 50 mg capsule 50 mg PO Q8H PRN (Reason: itching) Qty: 20 0RF estradiol 2 mg tablet 2 mg PO QDAY Patient Comments: take 1 tablet by mouth once daily trazodone 300 mg tablet 300 mg PO HS PRN (Reason: depression) propranolol 10 mg tablet 10 mg PO HS Patient Comments: take 1 tablet by mouth once daily for TREMORS montelukast 10 mg tablet 10 mg PO HS donepezil 5 mg tablet 5 mg PO HS gabapentin 400 mg capsule Patient Comments: take 1 capsule by mouth every 8 hours if needed for NEUROPATHY oxycodone-acetaminophen 10-325 mg tablet 10 - 325 tab PO Q6HR PRN (Reason: Pain (Scale Score 4-6)) Patient Comments: take 1 tablet by mouth three times a day to four times a day if needed for 30 DAYS ropinirole 2 mg tablet 2 mg PO TID Patient Comments: take 1 tablet by mouth three times a day spironolactone 100 mg tablet Patient Comments: take 1 tablet by mouth once daily levothyroxine [Synthroid] 25 mcg tablet Patient Comments: take 1 tablet by mouth once daily polyethylene glycol 3350 [HealthyLax] 17 gram Powder In Packet 17 g PO QDAY 30 Days Qty: 30 12RF nystatin 100,000 unit/gram powder 1 applic topical QDAY Qty: 60 1RF potassium chloride 8 mEq capsule, extended release 8 meq PO DAILY metronidazole 500 mg tablet 500 mg PO BID furosemide 20 mg tablet 20 mg PO DAILY hydroxyzine HCl 10 mg tablet 10 mg PO TID PRN (Reason: Anxiety) venlafaxine 150 mg capsule,extended release 24hr 150 mg PO DAILY Patient Comments: TAKE 1 CAPSULE BY MOUTH EVERY DAY nifedipine 30 mg tablet extended release 30 mg PO DAILY Patient Comments: TAKE 1 TABLET BY MOUTH EVERY DAY lubiprostone 8 mcg capsule 8 mcg PO BID PRN (Reason: constipation ) Patient Comments: TAKE 1 CAPSULE BY MOUTH TWICE A DAY WITH FOOD & WITH WATER spironolactone 100 mg tablet 100 mg PO DAILY Patient Comments: TAKE 1 TABLET BY MOUTH EVERY DAY pantoprazole 20 mg tablet,delayed release (DR/EC) 40 mg PO DAILY Patient Comments: TAKE 2 TABLETS BY MOUTH EVERY DAY NEEDED FOR ACID REFLUX docusate sodium 100 mg capsule 100 mg PO HS Patient Comments: TAKE 1 CAPSULE BY MOUTH EVERY DAY AT BEDTIME NEEDED duloxetine 60 mg capsule,delayed release(DR/EC) 60 mg PO HS Patient Comments: TAKE ONE CAPSULE BY MOUTH ONCE IN THE EVENING. Referrals: Ronda Panchal MD [Primary Care Provider] - In 1 week Problem List Clinical Impression: Back pain Patient/Caregiver Discharge Instructions Other Activity Instructions:: There is no acute finding on your x-ray or laboratory results that you suspect this is chronic back pain with an acute exacerbation please take your pain medications as home as prescribed if there is a worsening of symptoms follow-up with your primary care doctor or pain management. Education Materials: ED Back and Neck Pain, General Print Language: Italian Stand Alone Forms: Shana Award Info., Work/School Release, Patient Portal Info Letter PA/MARY Supervising Physician PA/MARY Supervising Physician: Michael Lock ENP
[2024-10-04] MEDS: oxyCODONE/APAP 5/325 TABLET 2 TAB PO (20:10)
[2024-10-04 20:48] LABS: Basophils % (Auto) 1 % (0-2.5); Eosinophils # (Auto) 0.2 Thou/mm3 (0.0-0.5); Eosinophils % (Auto) 4 % (0-10); Hematocrit 41.1 % (36.0-46.0); Hemoglobin 13.5 g/dL (12.0-16.0); Immature Granulocytes % (Auto) 1 % (0-0); Immature Granulocytes Auto 0.03 Thou/mm3 (0.00-0.00); Lymphocytes # (Auto) 2.6 Thou/mm3 (1.0-4.8); Lymphocytes % (Auto) 43 % (10-50); Mean Corpuscular HGB Conc 32.8 g/dl (31.0-37.0); Mean Corpuscular Hemoglobin 32.7 pg (25.0-35.0); Mean Corpuscular Volume 100 fL (80-100); Monocytes # (Auto) 0.7 Thou/mm3 (0.0-0.8); Monocytes % (Auto) 12 % (0-12); Neutrophils # (Auto) 2.5 Thou/mm3 (1.8-7.7); Neutrophils % (Auto) 41 % (37-80); Nucleated Red Blood Cell % 0 /100 WBC (0); Platelet Count 202 Thou/mm3 (140-440); RDW Standard Deviation 49.6 fL (36.4-46.3); Red Blood Count 4.13 Miln/mm3 (4.00-5.20)
[2024-10-04 20:57] LABS: Alanine Aminotransferase 21 U/L (10-49); Albumin, Serum 4.5 gm/dL (3.4-4.8); Albumin/Globulin Ratio 1.7 (1.2-2.2); Alkaline Phosphatase 84 U/L (46-116); Anion Gap 8 (7-16); Aspartate Amino Transferase 23 U/L (0-34); BUN/Creatinine Ratio 15 Ratio (12-20); Bilirubin,Total 0.4 mg/dL (0.3-1.2); Blood Urea Nitrogen 21 mg/dL (9-23); Calcium 10.4 mg/dL (8.3-10.6); Calcium (Corrected) 10.4 mg/dL (8.5-10.1); Carbon Dioxide 26.5 mMol/L (20.0-31.0); Chloride 105 mMol/L (98-107); Creatinine (Component) 1.4 mg/dL (0.6-1.3); Estimated Creatinine Clearance 51.6 mL/min (>60); Globulin 2.7 gm/dL (2.3-3.5); Glucose 98 mg/dL (74-106); Osmolality,Calculated 280 (275-295); Potassium 4.9 mMol/L (3.4-5.1); Sodium 139 mMol/L (136-145); Total Protein 7.2 gm/dL (5.7-8.2); eGFR 41 See Note
[2024-10-04 22:29] VITALS: BP 140/76; PULSE 86; RESP 16; TEMP 36.7; O2SAT 98
== END 2024-10-04 22:31 | disposition home or self-care (01) ==
PROVIDERS: Registered Nurse General Practice; Emergency Provider Emergency Medicine; PCP Family Medicine
DX: M54.9 Dorsalgia, unspecified (principal); G89.29 Other chronic pain
CPT/HCPCS: 36415; 71045; 80053; 85025; 93005; 99283; A9270

== ENCOUNTER 2024-11-26 16:22 | Emergency (ER) | payer MEDICARE, BC, SELFPAY ==
[2024-11-26 16:23] VITALS: BMI 40.3
[2024-11-26 16:53] VITALS: BP 117/87; PULSE 89; RESP 20; TEMP 37.1; O2SAT 93
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
[2024-11-26 17:52] LABS: Collection Type, Urine Voided
[2024-11-26 18:05] LABS: Bilirubin,Urine Negative (Negative); Blood,Urine Negative (Negative); Clarity,Urine Clear (Clear/Hazy); Color,Urine Yellow (Lt Yel-Yel); Glucose, Urine Negative (Negative); Ketones,Urine Negative (Negative); Leukocyte Esterase,Urine Positive (Negative); Nitrite,Urine Negative (Negative); PH,Urine 5.5 (5.0-7.0); Protein,Urine Negative (Neg - Trace); RBC,Urine 2 /hpf (0-3); Squamous Epithelial Cell,Urine 1 /hpf (0-5); Urobilinogen,Urine Negative mg/dL (0.0-1.0); WBC,Urine 89 /hpf (0-5)
[2024-11-26 18:08] LABS: Basophils % (Auto) 1 % (0-2.5); Eosinophils # (Auto) 0.2 Thou/mm3 (0.0-0.5); Eosinophils % (Auto) 3 % (0-10); Hematocrit 37.9 % (36.0-46.0); Hemoglobin 12.8 g/dL (12.0-16.0); Immature Granulocytes % (Auto) 1 % (0-0); Immature Granulocytes Auto 0.05 Thou/mm3 (0.00-0.00); Lymphocytes # (Auto) 2.1 Thou/mm3 (1.0-4.8); Lymphocytes % (Auto) 26 % (10-50); Mean Corpuscular HGB Conc 33.8 g/dl (31.0-37.0); Mean Corpuscular Hemoglobin 33.3 pg (25.0-35.0); Mean Corpuscular Volume 99 fL (80-100); Monocytes # (Auto) 0.9 Thou/mm3 (0.0-0.8); Monocytes % (Auto) 12 % (0-12); Neutrophils # (Auto) 4.7 Thou/mm3 (1.8-7.7); Neutrophils % (Auto) 58 % (37-80); Nucleated Red Blood Cell % 0 /100 WBC (0); Platelet Count 221 Thou/mm3 (140-440); Red Blood Count 3.84 Miln/mm3 (4.00-5.20)
[2024-11-26 18:08] LABS: Culture Indicated,Urine Yes
[2024-11-26 18:24] LABS: Alanine Aminotransferase 17 U/L (10-49); Albumin, Serum 4.2 gm/dL (3.4-4.8); Albumin/Globulin Ratio 1.8 (1.2-2.2); Alkaline Phosphatase 89 U/L (46-116); Anion Gap 10 (7-16); Aspartate Amino Transferase 19 U/L (0-34); BUN/Creatinine Ratio 16 Ratio (12-20); Bilirubin,Total 0.4 mg/dL (0.3-1.2); Blood Urea Nitrogen 22 mg/dL (9-23); Calcium 9.2 mg/dL (8.3-10.6); Calcium (Corrected) 9.2 mg/dL (8.5-10.1); Carbon Dioxide 25.3 mMol/L (20.0-31.0); Chloride 108 mMol/L (98-107); Creatinine (Component) 1.4 mg/dL (0.6-1.3); Estimated Creatinine Clearance 50.5 mL/min (>60); Globulin 2.3 gm/dL (2.3-3.5); Glucose 121 mg/dL (74-106); Lipase 27 U/L (12-53); Osmolality,Calculated 289 (275-295); Potassium 5.4 mMol/L (3.4-5.1); Sodium 143 mMol/L (136-145); Total Protein 6.5 gm/dL (5.7-8.2); eGFR 41 See Note
[2024-11-26 19:29] VITALS: BP 117/84; PULSE 85; RESP 19; TEMP 37.1; O2SAT 95
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
[2024-11-27] MEDS: HYDROcodone/APAP 5/325 TABLET 1 TAB PO (00:06)
[2024-11-27] MEDS: SODIUM CHLORIDE 0.9% 1000 ML 1,000 ML 999 ML IV (00:08)
[2024-11-27 00:57] LABS: Lactate (Lactic Acid) 0.8 mMol/L (0.4-2.0)
[2024-11-27] MEDS: CIPROFLOXACIN/D5w 400 MG IVPB 400 MG/200 ML BAG 200 MG IV (00:58)
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
--- NOTE | 2024-11-27 01:13 | XR_ITS ---
Examination: CT abdomen and pelvis without contrast. Coronal 3-D reconstructions. Sagittal 2-D reconstructions. Date and time of exam:November 27, 2024 0219 hours Comparison July 03, 2024 INDICATIONS: Onset right flank pain today CTDI: vol (mGy): 18.6 DLP: (mGycm): 1032 Technique: Axial images of the abdomen have been obtained, 3 mm slice thickness Intravenous contrast material has not been administered. Low dose protocols were performed. One or more of the following dose reduction techniques were used; automated exposure control, adjustment of the mA and/or KV according to patient size, use of iterative reconstruction technique. Findings: No focal liver or splenic lesions Absent gallbladder From fatty infiltration throughout the pancreas Mild perinephric stranding 1 mm right renal calculi, no hydronephrosis or ureteral calculi Fluid-filled distended small bowel loops in the anterior abdomen, mild No diverticulitis No bladder mass No pericecal inflammatory change I do not visualize a definite cystitis pattern Extensive thoracolumbar transpedicular stabilization, severe osteopenia, chronic osteoporotic compressions L2, L1, T11 IMPRESSION: Tiny nonobstructing right renal calculi. Perinephric stranding, consider urinary tract infection
[2024-11-27 01:28] VITALS: BP 121/61; PULSE 79; RESP 20; TEMP 36.4; O2SAT 93
[2024-11-27 03:00] VITALS: BP 128/73; PULSE 88; RESP 17; TEMP 36.4; O2SAT 93
[2024-11-27 04:00] VITALS: BP 104/71; PULSE 88; RESP 20; TEMP 36.6; O2SAT 94
--- NOTE | 2024-11-27 04:14 | PC.NURSE ---
CT order has changed to CT without contrast per provider
[2024-11-27] MEDS: HYDROmorphone INJ 2 MG/ML VIAL 0.5 MG IVP (05:07)
--- NOTE | 2024-11-27 05:27 | PRELIM_ITS ---
CT scan of the abdomen and pelvis without intravenous contrast (axial sections with sagittal and coronal reformats). November 27, 2024 0219 hours Clinical History: Right flank pain. Comparison: No prior study is available for comparison. Findings: Gallbladder is surgically absent. The liver has a slightly nodular contour was medicate cirrhosis. Spleen is not enlarged. Pancreas appears atrophic. The adrenals and kidneys are unremarkable except for mild nonspecific bilateral perinephric stranding and tiny nonobstructing nephrolith noted within the right kidney. There is no hydroureteronephrosis. Urinary bladder is of normal partially filled configuration. Reproductive organs are unremarkable. There is postoperative change to the stomach. There is distended small bowel measuring up to 5.5 cm in diameter within the left upper quadrant of the abdomen, just proximal to some surgical anastomotic sutures along small bowel within the left upper quadrant of the abdomen. There is no definite bowel obstruction. Appendix is not definitely visualized. There is no inflammatory change around the cecum. There is no free intraperitoneal air or fluid. There is no abdominal or pelvic lymphadenopathy. Reproductive organs are unremarkable for the patient's age. There are vascular calcifications along the abdominal aorta and branch vessels without aneurysmal dilatation. Prior ventral abdominal wall hernia repair suggested. There is postoperative change to the spine. Old compression fractures noted at the T11, L1, L2 and possibly L4 levels. There is degenerative change in the spine. There is satisfactory position of spinal hardware. There is subsegmental atelectasis within the lung bases. Left anterior descending coronary artery calcification noted. Impression: Tiny nonobstructive nephrolith within the right kidney. No hydroureteronephrosis. Possible cystitis. Prior cholecystectomy. Distended small bowel in the left upper quadrant may be related to postsurgical change of small bowel in this region. No definite bowel obstruction for Report Electronically Signed By: Pasha Lees 11/27/2024 5:26:16 AM [EST]
[2024-11-27 05:40] VITALS: BP 132/86; PULSE 86; RESP 20; TEMP 36.7; O2SAT 94
== END 2024-11-27 05:56 | disposition home or self-care (01) ==
PROVIDERS: Nurse Practitioner Family; Physician Assistant; Emergency Provider Emergency Medicine; PCP Family Medicine
DX: N20.0 Calculus of kidney (principal); N39.0 Urinary tract infection, site not specified
CPT/HCPCS: 51701; 36415; 74176; 80053; 81001; 83605; 83690; 85025; 87040; 87086; 96361; 96365; 96375; 99284; J0744; J1171; J7030; A9270

== ENCOUNTER 2024-12-07 17:36 | Emergency (ER) | payer MEDICARE, BC, SELFPAY ==
[2024-12-07 17:38] VITALS: BMI 39.9
[2024-12-07 18:17] VITALS: BP 117/76; PULSE 71; RESP 20; TEMP 36.7; O2SAT 100
--- NOTE | 2024-12-07 18:20 | XR_ITS ---
Examination: CT chest, without intravenous contrast. Sagittal and coronal 2-D reconstructions. Exam date and time: December 07, 2024 1837 hours INDICATIONS: Patient fell last week with injury to the back and right chest, chest pain and rib pain CTDI:vol (mGy) 26 DLP: (mGycm) 772 Technique: Multiple 3.0 mm axial sections of the chest to been obtained. Bone and lung density settings are obtained. Sagittal and coronal 2-D reconstructions have been obtained. Low dose protocols were performed. One or more of the following dose reduction techniques were used; automated exposure control, adjustment of the mA and/or KV according to patient size, use of iterative reconstruction technique. Findings: AP dimension thoracic aorta 3.9 cm Thoracic aorta pulmonary arteries appear intact on this noncontrast study Mild atelectasis in both lungs No pneumothorax No hemothorax Nondisplaced fracture right fifth rib anteriorly Old left-sided rib fractures The manubrium and the body of the sternum appear intact No acute thoracic vertebral body compression fracture Extensive transpedicular thoracolumbar stabilization with posterior fusion material Mild enlargement cardiac contour Prominent calcification left anterior descending coronary artery No liver or splenic laceration, again on this noncontrast study Absent gallbladder Atrophic pancreas IMPRESSION: Acute nondisplaced fracture anterior right fifth rib Thoracic aorta pulmonary arteries appear intact No pneumothorax pulmonary contusion or hemothorax Liver spleen partly visualized no laceration
--- NOTE | 2024-12-07 18:20 | XR_ITS ---
Examination: CT lumbar spine, without contrast. 2-D sagittal reconstructions. 2-D coronal reconstructions. 3-D reconstructions. Date and time of exam:December 07, 2024 1837 hours Comparison January 08, 2024 INDICATIONS: Patient fell last week with injury to lower back, lower back pain, history prior vertebral body fractures with spinal surgery 8 months ago CTDI: vol (mGy):73 DLP: (mGycm):2323 Technique: Multiple 1.25 mm axial sections of the abdomen is contrast have been obtained. 2-D sagittal and coronal reconstructions have been obtained. 3-D reconstructions have been obtained. Low dose protocols were performed. One or more of the following dose reduction techniques were used; automated exposure control, adjustment of the mA and/or KV according to patient size, use of iterative reconstruction technique. Findings: Severe osteopenia Again noted extensive thoracolumbar stabilization which is centered about chronic compressions L2, L1, T11 stable in appearance compared to the prior study No acute lumbar fracture Extensive artifacts from the patient's transpedicular fixation screws IMPRESSION: Again noted extensive thoracolumbar stabilization with chronic osteoporotic compression fractures No acute lumbar fracture
--- NOTE | 2024-12-07 18:20 | XR_ITS ---
Examination: CT thoracic spine, without contrast. 2-D sagittal reconstructions. 2-D coronal reconstructions. 3-D reconstructions. Date and time of exam:December 07, 2024 1837 hours Comparison December 06, 2023 INDICATIONS: Patient fell one week ago with injury to the back, back pain, back surgery 8 months ago CTDI: vol (mGy):51.7 DLP: (mGycm):1769 Technique: Multiple 1.25 mm axial sections of the thoracic spine without intravenous contrast have been obtained. 2-D sagittal and coronal reconstructions have been obtained. 3-D reconstructions have been obtained. Low dose protocols were performed. One or more of the following dose reduction techniques were used; automated exposure control, adjustment of the mA and/or KV according to patient size, use of iterative reconstruction technique. Findings: Severe osteopenia Extensive thoracolumbar transpedicular stabilization centered around chronic osteoporotic compressions L2, L1, T11 No acute thoracic vertebral body compression fracture Extensive posterior fusions IMPRESSION: No acute thoracic fracture
--- NOTE | 2024-12-07 18:21 | EDNOTE_ITS ---
<Statement entered by Zakia Gutierrez MD - 12/08/24 18:31> As co-signing physician, I was present and available for consult prn. I concur with the plan and care as documented by the midlevel provider. ED Fall Injury RME/HPI General Chief Complaint: Fall Stated Complaint: FELL 1 WK AGO ON R) SIDE; SEVERE BACK/RIB PAIN Time Seen by Provider: 12/07/24 18:19 Arrival date/time: 12/07/24 17:36 RME / HPI RME / HPI Narrative: 64-year-old female patient came in for evaluation regarding ground-level fall. Patient has significant thoracolumbar surgery, several months ago, but a week ago patient sustained a ground-level fall and now complaining of right sided rib pain, worsening thoracic pain and worsening lumbar pain, patient told me that despite her Dilaudid pump she still having 10 out of 10 pain. Patient is denying any other injury. No LOC during the time of the incident. Denies any headache right now. Denies any bladder incontinence. Denies any bowel incontinence. Denies any saddle anesthesia. Related Data Home Medications ?Medication ?Instructions ?Recorded ?Confirmed docusate sodium 100 mg capsule 100 mg PO HS 11/07/22 0 11/07/22 duloxetine 60 mg capsule,delayed 60 mg PO HS 11/07/22 10/29/23 release furosemide 20 mg tablet 20 mg PO DAILY 11/07/2210/26 hydroxyzine HCl 10 mg tablet 10 mg PO TID PRN Anxiety 11/07/22 11/07/22 lubiprostone 8 mcg capsule 8 mcg PO BID PRN constipati on 11/07/22 10/29/23 metronidazole 500 mg tablet 500 mg PO BID 11/07/22 nifedipine 30 mg tablet,extended 30 mg PO DAILY 11/07/22 release pantoprazole 20 mg tablet,delayed 40 mg PO DAILY 11/0710/29/23 release potassium chloride 8 mEq 8 meq PO DAILY 11/07/2209/18 capsule,extended release spironolactone 100 mg tablet 100 mg PO DAILY 11/07/22 10/29/23 venlafaxine 150 mg 150 mg PO DAILY 11/07/2209/18 capsule,extended release 24 hr donepezil 5 mg tablet 5 mg PO HS 10/29/23 10/29/23 estradiol 2 mg tablet 2 mg PO QDAY 10/29/23 gabapentin 400 mg capsule mg 10/29/23 levothyroxine 25 mcg tablet mcg 10/29/23 (Synthroid) montelukast 10 mg tablet 10 mg PO HS 10/29/23 4 oxycodone-acetaminophen 10 mg-325 10 - 325 tab PO Q6HR PRN Pain 10/29/23 10/29/23 mg tablet (Scale Score 4-6) propranolol 10 mg tablet 10 mg PO HS 10/29/23 4 ropinirole 2 mg tablet 2 mg PO TID 10/29/23 4 spironolactone 100 mg tablet mg 10/29/23 trazodone 300 mg tablet 300 mg PO HS PRN depression 10/29/23 10/29/23 Previous Rx's ?Medication ?Instructions ?Recorded diphenhydramine HCl 50 mg capsule 50 mg PO Q8H PRN itc anderson #20 caps 12/27/22 polyethylene glycol 3350 17 gram 17 g PO QDAY 30 days #30 ea 10/31/23 oral powder packet (HealthyLax) nystatin 100,000 unit/gram topical 1 applic topical QD AY #60 grams 07/03/24 powder ciprofloxacin HCl 500 mg tablet 500 mg PO BID Urinary tract 11/27/24 (Cipro) infection #14 tabs cyclobenzaprine 10 mg tablet 10 mg PO TID PRN muscle s pasm #30 12/07/24 tabs lidocaine 5 % topical patch 1 patch topical QDAY #15 e a 12/07/24 Allergies Allergy/AdvReac Type Severity Reaction Status Date / Time ceftriaxone Allergy Severe SWELLING Verified 12/07/24 17:40 TO LIPS, VOMITING, NAUSEA ibuprofen Allergy Severe SWELLING Verified 12/07/24 17:40 linezolid Allergy Severe ABD Verified 12/07/24 17:40 CRAMPING, N/V/D mushroom Allergy Severe VOMITING Verified 12/07/24 17:40 NSAIDS (Non-Steroidal Allergy Severe SWELLING, Verified 12/07/24 17:40 Anti-Inflamma SOB ondansetron Allergy Severe REDNESS Verified 12/07/24 17:40 AND PAIN AT SITE Penicillins Allergy Severe CAN'T Verified 12/07/24 17:40 BREATHE shellfish derived Allergy Severe Difficulty Verified 12/07/24 17:40 Breathing Sulfa (Sulfonamide Allergy Severe RASH Verified 12/07/24 17:40 Antibiotics) ciprofloxacin (From Cipro) Allergy Intermediate Redness of Verified 12/07/24 17:40 Skin erythromycin base Allergy Intermediate RASH Verified 12/07/24 17:40 doxycycline Allergy Mild Abdominal Verified 12/07/24 17:40 Pain iodine Allergy Mild SOB, Verified 12/07/24 17:40 THROAT SWELLING, HIVES, VOMITING Review of Systems Review of Systems Narrative Review of Systems: Review of system reviewed and within normal limits except mentioned in HPI ED Exam Narrative Physical exam: VITAL SIGNS: Reviewed. GENERAL APPEARANCE: Alert and interactive, follows commands, no acute distress, HEAD AND FACE: Non-traumatic. ENT: PERRL, pink conjunctivitis, eyelid no trauma, Mucous membrane moist. NECK: Supple, nontender, no nuchal rigidity. CHEST: No tenderness, no crepitus, no paradoxical movement, no retractions. LUNGS: Clear, well ventilated, symmetric, no rales, no wheezing, no ronchi, no stridor, good breath sounds bilaterally. HEART: Regular rate, regular rhythm, no murmur, no gallops. ABDOMEN: Soft, positive bowel sounds, nondistended, no guarding, nontender, no rebound, no masses, RECTAL: Deferred. GENITAL: Deferred. NEUROLOGICAL: Gross motor function intact sensory function intact, Appropriate for age. MUSCULOSKELETAL: Upper back/low back tenderness, full range of motion. EXTREMITIES: Nontender, full range of motion. SKIN: Color pink, dry, no rash, no lacerations, no abrasions, no contusions. LYMPHATICS: Deferred. Course Quality Measures none Orders Category Date Time Status CT chest wo con Stat Exams 12/07/24 18:[address] lumbar spine wo con Stat Exams 12/07/24 18:[address] thoracic spine wo con Stat Exams 12/07/24 18:20 Completed CYCLObenzaPRINE [Flexeril] Med 12/07/24 18:20 Discontinued 10 mg PO X1 ONE HYDROmorphone INJ [Dilaudid Inj] Med 12/07/24 18:20 Discontinued 1 mg IM X1 ONE Vital Signs Vital signs: Vital Signs Temperature 98.0 F 12/07/24 18:17 Pulse Rate 71 12/07/24 18:17 Respiratory Rate 20 12/07/24 18:17 Blood Pressure 117/76 12/07/24 18:17 Pulse Oximetry (%) 100 12/07/24 18:17 Oxygen Delivery Method Room Air 12/07/24 18:17 Fall [facility] Narrative [facility] Narrative:: 64-year-old female patient came in for evaluation regarding ground-level fall. Patient has significant thoracolumbar surgery, several months ago, but a week ago patient sustained a ground-level fall and now complaining of right sided rib pain, worsening thoracic pain and worsening lumbar pain, patient told me that despite her Dilaudid pump she still having 10 out of 10 pain. Patient is denying any other injury. No LOC during the time of the incident. Denies any headache right now. Denies any bladder incontinence. Denies any bowel incontinence. Denies any saddle anesthesia. CT scan with thoracic spine came back with no acute pathology. CT scan of the lumbar spine came back with no acute pathology. CT scan of the chest showed rib fracture #5 nondisplaced, no pneumothorax no hemothorax noted. No contusion of the lamina noted. Results discussed with the patient. Patient was given Dilaudid IM temperature with significant improvement of pain. Patient told me that she had pain medication at home. Patient data External records reviewed:: None Clinical information provided by:: patient Social determinants that could affect healthcare access:: none Patient has the following chronic illnesses:: Chronic back pain How is presenting disease/condition affected by chronic disease/condition?: exacerbated by Evaluation data The following diagnostics were reviewed and interpreted by me:: radiology exam(s) Lab and/or radiology exams considered but not ordered:: None Interpretation Summary: See results in [facility] Medications / Prescriptions Medications or Prescriptions considered but not ordered:: None Medication administrations:: Medication Administration History Discontinued Medications Cyclobenzaprine HCl (Cyclobenzaprine 5 Mg Tablet) 10 mg PO X1 ONE Stop: 12/07/24 18:21 Last Admin: 12/07/24 18:51 Dose: 10 mg Documented By: LEELA Hydromorphone HCl (Hydromorphone Inj 2 Mg/Ml Vial) 1 mg IM X1 ONE Stop: 12/07/24 18:21 Last Admin: 12/07/24 18:52 Dose: 1 mg Documented By: LEELA Dilaudid and Flexeril Consultations Consultation(s) initiated? (list below): No Diagnosis Fall Differential Diagnosis: other (Fall, rib fracture, thoracic pain, lumbar pain,) Most likely diagnosis given after review of the tests above:: Right fifth rib fracture, status post fall, thoracic spine pain, lumbar pain, chronic Admission Indicated Admission indicated?: not indicated Admission Request Was there a request for admission?: No Disposition Plan Disposition Plan: Discharge Discharge Attestation Discharge Attestation: The patient was given an opportunity to ask questions and understood the discharge instructions. Discharge instructions specifically effects, indications for sooner follow up or return to the emergency department, and the expected course of current diagnosis. Patient condition: Stable Discharge Plan Plan Patient Disposition: HOME (Self Care) Discharge Disposition comment: Stable Prescriptions/Referrals Prescriptions/Med Rec: New lidocaine 5 % adhesive patch,medicated 1 patch topical QDAY Qty: 15 0RF Rx Instructions: leave on most painful area for up to 12 hrs cyclobenzaprine 10 mg tablet 10 mg PO TID PRN (Reason: muscle spasm) Qty: 30 0RF No Action diphenhydramine HCl 50 mg capsule 50 mg PO Q8H PRN (Reason: itching) Qty: 20 0RF estradiol 2 mg tablet 2 mg PO QDAY Patient Comments: take 1 tablet by mouth once daily trazodone 300 mg tablet 300 mg PO HS PRN (Reason: depression) propranolol 10 mg tablet 10 mg PO HS Patient Comments: take 1 tablet by mouth once daily for TREMORS montelukast 10 mg tablet 10 mg PO HS donepezil 5 mg tablet 5 mg PO HS gabapentin 400 mg capsule Patient Comments: take 1 capsule by mouth every 8 hours if needed for NEUROPATHY oxycodone-acetaminophen 10-325 mg tablet 10 - 325 tab PO Q6HR PRN (Reason: Pain (Scale Score 4-6)) Patient Comments: take 1 tablet by mouth three times a day to four times a day if needed for 30 DAYS ropinirole 2 mg tablet 2 mg PO TID Patient Comments: take 1 tablet by mouth three times a day spironolactone 100 mg tablet Patient Comments: take 1 tablet by mouth once daily levothyroxine [Synthroid] 25 mcg tablet Patient Comments: take 1 tablet by mouth once daily polyethylene glycol 3350 [HealthyLax] 17 gram Powder In Packet 17 g PO QDAY 30 Days Qty: 30 12RF nystatin 100,000 unit/gram powder 1 applic topical QDAY Qty: 60 1RF ciprofloxacin HCl [Cipro] 500 mg tablet 500 mg PO BID Qty: 14 0RF Rx Instructions: Patient is not allergic to Cipro potassium chloride 8 mEq capsule, extended release 8 meq PO DAILY metronidazole 500 mg tablet 500 mg PO BID furosemide 20 mg tablet 20 mg PO DAILY hydroxyzine HCl 10 mg tablet 10 mg PO TID PRN (Reason: Anxiety) venlafaxine 150 mg capsule,extended release 24hr 150 mg PO DAILY Patient Comments: TAKE 1 CAPSULE BY MOUTH EVERY DAY nifedipine 30 mg tablet extended release 30 mg PO DAILY Patient Comments: TAKE 1 TABLET BY MOUTH EVERY DAY lubiprostone 8 mcg capsule 8 mcg PO BID PRN (Reason: constipation ) Patient Comments: TAKE 1 CAPSULE BY MOUTH TWICE A DAY WITH FOOD & WITH WATER spironolactone 100 mg tablet 100 mg PO DAILY Patient Comments: TAKE 1 TABLET BY MOUTH EVERY DAY pantoprazole 20 mg tablet,delayed release (DR/EC) 40 mg PO DAILY Patient Comments: TAKE 2 TABLETS BY MOUTH EVERY DAY NEEDED FOR ACID REFLUX docusate sodium 100 mg capsule 100 mg PO HS Patient Comments: TAKE 1 CAPSULE BY MOUTH EVERY DAY AT BEDTIME NEEDED duloxetine 60 mg capsule,delayed release(DR/EC) 60 mg PO HS Patient Comments: TAKE ONE CAPSULE BY MOUTH ONCE IN THE EVENING. Referrals: No Primary/Family,Physician [Primary Care Provider] - In 1 week Problem List Clinical Impression: Thoracic back pain, Low back pain, Closed rib fracture Patient/Caregiver Discharge Instructions Discharge Activity: activity as tolerated Education Materials: ED Rib Fracture Additional Instructions: Thank you for the opportunity for serving you today. You are stable for discharged . You are advised to: Follow-up with your PCP in 1 to 2 days Return to ED for worsening of symptoms Increase oral fluids Take medication as prescribed Take your own pain medication as instructed Print Language: Divehi Stand Alone Forms: Shana Award Info., Patient Portal Info Letter RAYRAY/MARY Supervising Physician RAYRAY/MARY Supervising Physician: MD Alli
[2024-12-07] MEDS: CYCLObenzaPRINE 5 MG TABLET 10 MG PO (18:51)
[2024-12-07] MEDS: HYDROmorphone INJ 2 MG/ML VIAL 1 MG IM (18:52)
[2024-12-07 20:45] VITALS: BP 138/60; PULSE 68; RESP 18; TEMP 36.7; O2SAT 97
== END 2024-12-07 20:46 | disposition home or self-care (01) ==
PROVIDERS: Emergency Provider Emergency Medicine
DX: S22.31XA Fracture of one rib, right side, initial encounter for closed fracture (principal); M54.6 Pain in thoracic spine; W18.30XA Fall on same level, unspecified, initial encounter; J98.11 Atelectasis; I25.10 Atherosclerotic heart disease of native coronary artery without angina pectoris; K86.89 Other specified diseases of pancreas; M85.88 Other specified disorders of bone density and structure, other site; M80.08XA Age-related osteoporosis with current pathological fracture, vertebra(e), initial encounter for fracture
CPT/HCPCS: 71250; 72128; 72131; 96372; 99284; J1171; A9270

== ENCOUNTER 2025-01-24 18:07 | Emergency (ER) | payer MEDICARE, BC, SELFPAY ==
[2025-01-24 18:09] VITALS: BMI 39.9
[2025-01-24 18:21] VITALS: BP 141/87; PULSE 95; RESP 19; TEMP 36.9; O2SAT 96
--- NOTE | 2025-01-24 18:51 | EKG_ITS ---
[facility] Test Date: 2025-01-24 Pat Name: ARON CACERES Department: Room: - Gender: Female Structurer: : 1960 Requested By: Krishna Green Order Number: [id number] Reading MD: Krishna Green Measurements Intervals Price Rate: 101 P: 0 OK: 127 QRS: -10 QRSD: 88 T: 31 QT: 310 QTc: 403 Interpretive Statements SINUS TACHYCARDIA MINIMAL VOLTAGE CRITERIA FOR LVH, CONSIDER NORMAL VARIANT [MEETS CRITERIA IN ONE OF: R(aVL), S(V1), R(V5), R(V5/V6)+S(V1)] INFERIOR MYOCARDIAL INFARCTION , PROBABLY OLD [40+ ms Q WAVE AND/OR ST/T ABNORMALITY IN II/aVF] ANTEROSEPTAL MYOCARDIAL INFARCTION , OF INDETERMINATE AGE [40+ ms Q WAVE IN V1-V4] Compared to ECG 10/04/2024 19:52:06 Junctional rhythm no longer present Myocardial infarct finding still present /store/S0/[id number]/[id number].pdf
--- NOTE | 2025-01-24 18:51 | XR_ITS ---
Examination: AP chest upright single view TECHNIQUE: AP portable upright chest single view Date and time: January 24, 2025 1905 hours Comparison October 04, 2024 INDICATIONS: Chest pain today FINDINGS: Mild prominence of ventricle Bilateral subsegmental atelectasis Mild to moderate elevation right hemidiaphragm No lobar pneumonia or pulmonary edema Extensive orthopedic support rods thoracic lumbar spine IMPRESSION: Bilateral subsegmental atelectasis No lobar pneumonia or pulmonary edema
--- NOTE | 2025-01-24 18:51 | PD.EDRME ---
Rapid Medical Screening Exam RME Arrival date/time: 01/24/25 18:07 63F with history of CLBP s/p spinal fusion with pain pump (followed by Dr Hernandez pain specialist in the past), fibromyalgia/chronic MSK pain syndrome, peripheral neuropathy, recurrent SBOs/hernia surgeries, HTN, asthma, hypothyroidism, macrocytosis, constipation, and known lumbar fx, as wel as kidney stones presents to ED with worse than usual R-sided back pain that radiates to chest, as well as some SOB. Patient denies fall/trauma. Patient states she can't more of her oxy 10s without provider contacting pain specialist or they will have to cancel her contract. Chief Complaint: Back Pain/Injury Vital signs: Vital Signs Temperature 98.5 F 01/24/25 18:21 Pulse Rate 95 01/24/25 18:21 Respiratory Rate 19 01/24/25 18:21 Blood Pressure 141/87 H 01/24/25 18:21 Pulse Oximetry (%) 96 01/24/25 18:21 Oxygen Delivery Method Room Air 01/24/25 18:21
[2025-01-24 19:34] LABS: Basophils # (Auto) 0.0 Thou/mm3 (0.0-0.2); Basophils % (Auto) 1 % (0-2.5); Eosinophils # (Auto) 0.2 Thou/mm3 (0.0-0.5); Eosinophils % (Auto) 3 % (0-10); Hematocrit 41.4 % (36.0-46.0); Hemoglobin 13.1 g/dL (12.0-16.0); Immature Granulocytes Auto 0.05 Thou/mm3 (0.00-0.00); Lymphocytes # (Auto) 2.2 Thou/mm3 (1.0-4.8); Lymphocytes % (Auto) 35 % (10-50); Mean Corpuscular HGB Conc 31.6 g/dl (31.0-37.0); Mean Corpuscular Hemoglobin 32.8 pg (25.0-35.0); Mean Corpuscular Volume 104 fL (80-100); Monocytes # (Auto) 0.6 Thou/mm3 (0.0-0.8); Monocytes % (Auto) 10 % (0-12); Neutrophils # (Auto) 3.2 Thou/mm3 (1.8-7.7); Neutrophils % (Auto) 50 % (37-80); Nucleated Red Blood Cell # 0.00 Thou/mm3 (0.00-0.00); Nucleated Red Blood Cell % 0 /100 WBC (0); Platelet Count 205 Thou/mm3 (140-440); RDW Standard Deviation 51.7 fL (36.4-46.3); Red Blood Count 4.00 Miln/mm3 (4.00-5.20); White Blood Count 6.3 Thou/mm3 (3.6-11.0)
[2025-01-24 19:53] LABS: Collection Type, Urine Clean Catch
[2025-01-24 19:53] LABS: Alanine Aminotransferase 16 U/L (10-49); Albumin, Serum 4.6 gm/dL (3.4-4.8); Albumin/Globulin Ratio 1.7 (1.2-2.2); Alkaline Phosphatase 100 U/L (46-116); Anion Gap 7 (7-16); Aspartate Amino Transferase 24 U/L (0-34); BUN/Creatinine Ratio 14 Ratio (12-20); Bilirubin,Total 0.3 mg/dL (0.3-1.2); Blood Urea Nitrogen 18 mg/dL (9-23); Calcium 10.4 mg/dL (8.3-10.6); Calcium (Corrected) 10.4 mg/dL (8.5-10.1); Carbon Dioxide 25.9 mMol/L (20.0-31.0); Chloride 109 mMol/L (98-107); Creatinine (Component) 1.3 mg/dL (0.6-1.3); Estimated Creatinine Clearance 55.9 mL/min (>60); Globulin 2.7 gm/dL (2.3-3.5); Glucose 102 mg/dL (74-106); Osmolality,Calculated 285 (275-295); Potassium 5.3 mMol/L (3.4-5.1); Sodium 142 mMol/L (136-145); Total Protein 7.3 gm/dL (5.7-8.2); Troponin I < 0.002 ng/mL (0.0-0.045); eGFR 45 See Note
[2025-01-24 20:04] LABS: Bilirubin,Urine Negative (Negative); Blood,Urine Negative (Negative); Clarity,Urine Clear (Clear/Hazy); Color,Urine Yellow (Lt Yel-Yel); Glucose, Urine Negative (Negative); Ketones,Urine Negative (Negative); Leukocyte Esterase,Urine Positive (Negative); Nitrite,Urine Negative (Negative); PH,Urine 5.5 (5.0-7.0); Protein,Urine Negative (Neg - Trace); RBC,Urine 3 /hpf (0-3); Specific Gravity,Urine 1.024 (1.001-1.035); Squamous Epithelial Cell,Urine 1 /hpf (0-5); Urobilinogen,Urine Negative mg/dL (0.0-1.0); WBC,Urine 12 /hpf (0-5)
[2025-01-24 20:05] LABS: Culture Indicated,Urine Yes
[2025-01-24 20:39] LABS: Amphetamine/Methamp Scrn,U Negative (Negative); Barbiturate Screen,Urine Positive (Negative); Benzodiazepines Screen,Urine Negative (Negative); Benzoylecgonine Screen, Ur Negative (Negative); Fentanyl Screen,Urine Negative (Negative); Opiate Screen,Urine Positive (Negative); THC Screen,Urine Negative (Negative)
[2025-01-24 21:32] VITALS: BP 127/83; PULSE 88; RESP 19; TEMP 36.5; O2SAT 96
--- NOTE | 2025-01-25 00:18 | PD.EDBACK ---
ED Back Injury Pain RME/HPI General Chief Complaint: Back Pain/Injury Stated Complaint: EXTREME PAIN ON R) BACK TO SIDE Time Seen by Provider: 01/24/25 20:54 Arrival date/time: 01/24/25 18:07 Limitations: no limitations RME / HPI RME / HPI Narrative: 01/24/25 18:07 63F with history of CLBP s/p spinal fusion with pain pump (followed by Dr Hernandez pain specialist in the past), fibromyalgia/chronic MSK pain syndrome, peripheral neuropathy, recurrent SBOs/hernia surgeries, HTN, asthma, hypothyroidism, macrocytosis, constipation, and known lumbar fx, as wel as kidney stones presents to ED with worse than usual R-sided back pain that radiates to chest, as well as some SOB. Patient denies fall/trauma. Patient states she can't more of her oxy 10s without provider contacting pain specialist or they will have to cancel her contract. ------- Dr. [facility] Main ED Evaluation: 64yo female with a history of CLBP s/p spinal fusion with dilaudid pain pump (followed by Dr Hernandez pain specialist in the past), fibromyalgia/chronic MSK pain syndrome presents to the ED for a chief complaint of upper back pain. Patient endorses having a history of chronic back pain, but states her upper back pain is significantly worse today. She denies any fever, chills, N/V, or any other associated symptoms. Related Data Home Medications ?Medication ?Instructions ?Recorded ?Confirmed docusate sodium 100 mg capsule 100 mg PO HS 11/07/22 11/07/22 duloxetine 60 mg capsule,delayed 60 mg PO HS 11/07/22 10/29/23 release furosemide 20 mg tablet 20 mg PO DAILY 11/07/22 11/07/22 hydroxyzine HCl 10 mg tablet 10 mg PO TID PRN Anxiety 11/07/22 11/07/22 lubiprostone 8 mcg capsule 8 mcg PO BID PRN constipation 11/07/22 10/29/23 metronidazole 500 mg tablet 500 mg PO BID 11/07/22 11/07/22 nifedipine 30 mg tablet,extended 30 mg PO DAILY 11/07/22 11/07/22 release pantoprazole 20 mg tablet,delayed 40 mg PO DAILY 11/07/22 10/29/23 release potassium chloride 8 mEq 8 meq PO DAILY 11/07/22 10/29/23 capsule,extended release spironolactone 100 mg tablet 100 mg PO DAILY 11/07/22 10/29/23 venlafaxine 150 mg 150 mg PO DAILY 11/07/22 10/29/23 capsule,extended release 24 hr donepezil 5 mg tablet 5 mg PO HS 10/29/23 10/29/23 estradiol 2 mg tablet 2 mg PO QDAY 10/29/23 10/29/23 gabapentin 400 mg capsule mg 10/29/23 levothyroxine 25 mcg tablet mcg 10/29/23 (Synthroid) montelukast 10 mg tablet 10 mg PO HS 10/29/23 10/29/23 oxycodone-acetaminophen 10 mg-325 10 - 325 tab PO Q6HR PRN Pain 10/29/23 10/29/23 mg tablet (Scale Score 4-6) propranolol 10 mg tablet 10 mg PO HS 10/29/23 10/29/23 ropinirole 2 mg tablet 2 mg PO TID 10/29/23 10/30/23 spironolactone 100 mg tablet mg 10/29/23 trazodone 300 mg tablet 300 mg PO HS PRN depression 10/29/23 10/29/23 Previous Rx's ?Medication ?Instructions ?Recorded diphenhydramine HCl 50 mg capsule 50 mg PO Q8H PRN itching #20 caps 12/27/22 polyethylene glycol 3350 17 gram 17 g PO QDAY 30 days #30 ea 10/31/23 oral powder packet (HealthyLax) nystatin 100,000 unit/gram topical 1 applic topical QDAY #60 grams 07/03/24 powder ciprofloxacin HCl 500 mg tablet 500 mg PO BID Urinary tract 11/27/24 (Cipro) infection #14 tabs cyclobenzaprine 10 mg tablet 10 mg PO TID PRN muscle spasm #30 12/07/24 tabs lidocaine 5 % topical patch 1 patch topical QDAY #15 ea 12/07/24 Allergies Allergy/AdvReac Type Severity Reaction Status Date / Time ceftriaxone Allergy Severe SWELLING Verified 01/24/25 18:13 TO LIPS, VOMITING, NAUSEA ibuprofen Allergy Severe SWELLING Verified 01/24/25 18:13 linezolid Allergy Severe ABD Verified 01/24/25 18:13 CRAMPING, N/V/D mushroom Allergy Severe VOMITING Verified 01/24/25 18:13 NSAIDS (Non-Steroidal Allergy Severe SWELLING, Verified 01/24/25 18:13 Anti-Inflamma SOB ondansetron Allergy Severe REDNESS Verified 01/24/25 18:13 AND PAIN AT SITE Penicillins Allergy Severe CAN'T Verified 01/24/25 18:13 BREATHE shellfish derived Allergy Severe Difficulty Verified 01/24/25 18:13 Breathing Sulfa (Sulfonamide Allergy Severe RASH Verified 01/24/25 18:13 Antibiotics) ciprofloxacin (From Cipro) Allergy Intermediate Redness of Verified 01/24/25 18:13 Skin erythromycin base Allergy Intermediate RASH Verified 01/24/25 18:13 doxycycline Allergy Mild Abdominal Verified 01/24/25 18:13 Pain iodine Allergy Mild SOB, Verified 01/24/25 18:13 THROAT SWELLING, HIVES, VOMITING Review of Systems Review of Systems Systems Reviewed: All systems reviewed, normal except as documented Past Medical History Past Medical History NEUROLOGIC: Positive Neurological Disorders, Cerebrovascular Accident, Transient Ischemic Attacks (TIA) (per pt recalls having one many years ago), Seizures (over 5 years), Head Trauma and Spinal Cord Injury; Negative Dementia, Alzheimer's Disease, Parkinson's Disease, Brain Tumor, Meningitis, Epilepsy, Multiple Sclerosis, Cerebral Palsy, Amyotrophic Lateral Sclerosis (ALS/Cookie Gehrig's), Guillain-[place] Syndrome, Spina Bifida, Paralysis, Peripheral Neuropathy, Mcknight's Palsy, Subdural Hematoma, Migraine or Traumatic Brain Injury CARDIAC: Positive Edema, Cellulitis, Deep Vein Thrombosis (per pt its been over 5 years) and Hypertension; Negative Cardiac Disorders, Myocardial Infarction, Cardiac Arrhythmia, Atrial Fibrillation, Angina, Heart Murmur, Coronary Artery Disease, Atherosclerotic Heart Disease, Peripheral Vascular Disease, Hypercholesterolemia, Aneurysm, Congestive Heart Failure, Congenital Heart Disease, Valvular Heart Disease, Rheumatic Fever, Cardiomyopathy, Pericarditis, Hypotension or Varicose Veins RESPIRATORY: Positive Asthma and Pneumonia; Negative Chronic Obstructive Pulmonary Disease (COPD), Bronchitis, Emphysema, Pulmonary Fibrosis, Cystic Fibrosis, Tuberculosis, Pulmonary Embolism, Pulmonary Edema or Sleep Apnea GASTROINTESTINAL: Positive Gastrointestinal Disorders, Obstructive Bowel, Hiatal Hernia and Obesity; Negative Hepatitis, Cirrhosis, Pancreatitis, Celiac Disease, Gall Bladder Disease, Gastrointestinal Bleed, Esophageal Varices, Bills's Esophagus, Colitis, Ulcerative Colitis, Diverticulitis, Diverticulosis, Ulcer, Colorectal Cancer, Crohn's Disease, Hemorrhoids or Gastroesophageal Reflux Disease GENITOURINARY: Positive Genitourinary Disorders and Kidney Stones; Negative Renal Disease, Polycystic Kidney Disease, Neurogenic Bladder, Inguinal Hernia, Dialysis, Prostate Cancer or Benign Prostatic Hyperplasia REPRODUCTIVE: Positive Previous Pregnancies; Negative Breast Cancer, Endometriosis, Genital Herpes, Gonorrhea, Pelvic Inflammatory Disease, Syphilis, Testicular Cancer or Uterine Prolapse MUSCULOSKELETAL: Positive Musculoskeletal Disorders, Arthritis, Degenerative Disk Disease, Carpal Tunnel Syndrome, Fibromyalgia and Fractures (back surgeries); Negative Muscular Dystrophy, Myasthenia Gravis, Marfan's Syndrome, Bone Cancer, Rheumatoid Arthritis, Osteoporosis, Gout, Scoliosis, Degenerative Joint Disease, Osteomyelitis or Poliovirus ENT: Positive Head Trauma; Negative Cataracts, Glaucoma, Blind, Retinal Detachment, Macular Degeneration, Ear Infection, Deafness or Eye Prosthesis ENDOCRINE: Positive Hyperthyroidism; Negative Endocrine Disorders, Diabetes Mellitus Type 1, Diabetes Mellitus Type 2, Hypoglycemia, [place]'s Syndrome, Norwood's Disease, Hypothyroidism, Parathyroid Disease, Pituitary Disease, Systemic Lupus Erythematosus, Syndrome of Inappropriate Antidiuretic Hormone (SIADH), Adrenal Disease or Graves' Disease HEMATOLOGIC: Positive Blood Disorders, Anemia and Clotting Problems (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); Negative Leukemia, Hemophilia, Thalassemia or Sickle Cell Disease PSYCHO/SOCIAL: Positive Depression and Anxiety; Negative Psychiatric Problems, Schizophrenia, Recreational Drug Use, Bipolar Disorder, Behavior Problems, Self-Mutilation, Attention Deficit Disorder, Attention Deficit Hyperactivity Disorder, Depression, Post Traumatic Stress Disorder or Eating Disorder OTHER HISTORY: Positive Hospitalization, Falls, Blood Transfusions, Chicken Pox, Measles, Mumps and Rubella (Sammarinese Measles); Negative Autoimmune Disease, Down Syndrome, Autism, Developmental Delay, Blood Transfusion Reaction, Anesthesia Reactions, Organ Transplant, Chemotherapy, Radiation Therapy, Hyperbaric Therapy, MRSA, Vancomycin-Resistant Enterococci, Human Immunodeficiency Virus (HIV), Pertussis, Cancer, Breast Cancer, Cervical Cancer, Colorectal Cancer, Lung Cancer, Ovarian Cancer, Prostate Cancer or Testicular Cancer Family History FAMILY HISTORY: Positive Family Psychiatric Problems, Family Respiratory Disorders, Family Cardiac Disorders, Family Gastrointestinal Problems, Family Cancer and Family Surgery; Negative Family Anesthesia Reaction Surgical History SURGICAL: Positive Ear Surgery, Eye Surgery, Abdominal Surgery, Gastric Bypass Surgery, Bowel Surgery, Joint Replacement, Tubal Ligation and Section; Negative Cardiac Surgery, Open Heart Surgery, Coronary Artery Bypass Graft, Valve Replacement, Vascular Surgery, Coronary Stent, Cardiac Catheterization, Pacemaker, Angiogram, Auto Implanted Cardiovert Defib, Carotid Endarterectomy, Endocrine Surgery, Thyroidectomy, Nose Surgery, Oral Surgery, Tonsillectomy, Adenoidectomy, Cochlear Implant, Corneal Transplant, Throat Surgery, Tracheostomy, Gastrostomy, Nephrectomy, Transurethral Resection, Amputation, Open Reduction Internal Fixation, Arthroscopy, Neurologic Surgery, Brain Shunt, Mastectomy, Lumpectomy, Hysterectomy or Organ Transplant Social History SMOKING STATUS: Never smoker SECOND HAND EXPOSURE: No SUBSTANCE USE: does not use ED Exam General Limitations: Present no limitations General appearance: Present alert and in no apparent distress Head Head exam: Present atraumatic Eye Eye exam: Present normal appearance, PERRL and EOMI ENT ENT exam: Present normal exam, normal oropharynx and mucous membranes moist Neck Neck exam: Present normal inspection, full ROM and trachea midline Chest Chest inspection: Present normal inspection and symmetric chest wall rise Respiratory Respiratory exam: Present normal lung sounds bilaterally Cardiovascular Cardiovascular exam: Present regular rate, normal rhythm and normal heart sounds Abdominal Exam Abdominal exam: Present soft and normal bowel sounds Extremities Exam Extremities exam: Present normal inspection and full ROM Back Exam Back exam: Present full ROM and other (well-healed midline scar from the scapula down to the sacrum without any tenderness, erythema, or discharge; paraspinal tightness at the level of T4; no vesicles or rash) Neurological Exam Neurological exam: Present alert, oriented X3 and CN II-XII intact Psychiatric Psychiatric exam: Present normal affect and normal mood Skin Skin exam: Present warm, dry, intact and normal color Course Quality Measures none Orders Category Date Time Status EKG (ED ONLY) *Do not use* NOW Care 01/24/25 18:51 Completed EKG (ED Only) Stat Exams 01/24/25 18:51 Draft XR chest 1V portable Stat Exams 01/24/25 18:51 Completed CBC Stat Lab 01/24/25 19:16 Completed Comprehensive Metabolic Panel Stat Lab 01/24/25 19:16 Completed Drug Screen,Urine Stat Lab 01/24/25 19:46 Completed Troponin I Stat Lab 01/24/25 19:16 Completed Urinalysis, C/S if Indicated Stat Lab 01/24/25 19:46 Completed Urine Culture Stat Lab 01/24/25 19:46 Received HYDROmorphone INJ [Dilaudid Inj] Med 01/25/25 00:18 Discontinued 1 mg IM X1 ONE Ketorolac Inj [Toradol Inj] Med 01/25/25 00:18 Pending 30 mg IM X1 ONE Nitrofurantoin Macro [Macrobid] Med 01/25/25 00:02 Discontinued 100 mg PO X1 ONE cephALEXin [Keflex] Med 01/25/25 00:19 Discontinued 500 mg PO X1 ONE Vital Signs Vital signs: Vital Signs Temperature 98.5 F 01/24/25 18:21 Pulse Rate 95 01/24/25 18:21 Respiratory Rate 19 01/24/25 18:21 Blood Pressure 141/87 H 01/24/25 18:21 Pulse Oximetry (%) 96 01/24/25 18:21 Oxygen Delivery Method Room Air 01/24/25 18:21 Back Pain / Injury MDM Narrative MDM Narrative:: Scribe Attestation: 01/25/25 - Minnie Leiva am scribing for and in the presence of Dr. Archibald. Patient states she is able to take toradol and Keflex. Patient data External records reviewed:: [facility] previous records (Per chart review, patient was seen here on 12/07/24 for closed rib fracture.) Clinical information provided by:: patient Social determinants that could affect healthcare access:: none Patient has the following chronic illnesses:: CLBP s/p spinal fusion with dilaudid pain pump (followed by Dr Hernandez pain specialist in the past), fibromyalgia/chronic MSK pain syndrome, peripheral neuropathy, recurrent SBOs/hernia surgeries, HTN, asthma, hypothyroid, macrocytosis How is presenting disease/condition affected by chronic disease/condition?: caused by Evaluation data The following diagnostics were reviewed and interpreted by me:: lab results and radiology exam(s) Lab and/or radiology exams considered but not ordered:: none Interpretation Summary: CBC normal, Creatinine normal, Troponin normal. UA remarkable for positive leukocyte esterase and 12 WBCs. EKG done at 1853, sinus tachycardia, rate of 101, low voltage, old anterior infarct, normal intervals, no STEMI, according to my interpretation. [facility] Report Signed Patient: ARON CACERES [facility]. Record#: [id number] Birthdate: 1960 Age/Sex: 64 / F Location: [facility] Attending Dr: Ordering Physician: Krishna Green PA-C Date of Service: 01/24/25 Procedure(s): XR chest 1V portable Accession Number(s): [id number] cc: Umair Leos MD; Krishna Green PA-C~ Examination: AP chest upright single view TECHNIQUE: AP portable upright chest single view Date and time: January 24, 2025 1905 hours Comparison October 04, 2024 INDICATIONS: Chest pain today FINDINGS: Mild prominence of ventricle Bilateral subsegmental atelectasis Mild to moderate elevation right hemidiaphragm No lobar pneumonia or pulmonary edema Extensive orthopedic support rods thoracic lumbar spine IMPRESSION: Bilateral subsegmental atelectasis No lobar pneumonia or pulmonary edema Dictated By: Umair Leos MD Signed By: <Electronically signed by Umair Leos MD in OV> 01/24/25 1915 Medications / Prescriptions Medications or Prescriptions considered but not ordered:: none Medication administrations:: Medication Administration History Ketorolac Tromethamine (Ketorolac Inj 60 Mg/2 Ml Vial) 30 mg IM X1 ONE Stop: 01/25/25 00:19 Discontinued Medications Cephalexin HCl (Cephalexin 250 Mg Capsule) 500 mg PO X1 ONE Stop: 01/25/25 00:20 Last Admin: 01/25/25 01:05 Dose: 500 mg Documented By: SF Hydromorphone HCl (Hydromorphone Inj 2 Mg/Ml Vial) 1 mg IM X1 ONE Stop: 01/25/25 00:19 Last Admin: 01/25/25 01:05 Dose: 1 mg Documented By: FRANKLIN Nitrofurantoin Macrocrystals (Nitrofurantoin Macro 100 Mg Capsule) 100 mg PO X1 ONE Stop: 01/25/25 00:03 Last Admin: 01/25/25 00:14 Dose: Not Given Documented By: MILTON Non-Admin Reason: Allergy see above Consultations Consultation(s) initiated? (list below): No Diagnosis Differential diagnosis back pain/injury: other (zoster, complication from previous surgery, acute on chronic pain) Most likely diagnosis given after review of the tests above:: see clinical impression below Admission Indicated Admission indicated?: not indicated Admission Request Was there a request for admission?: No Disposition Plan Disposition Plan: Discharge Discharge Attestation Discharge Attestation: The patient and all family members were given an opportunity to ask questions and understood the discharge instructions. Discharge instructions specifically effects, indications for sooner follow up or return to the emergency department, and the expected course of current diagnosis. Patient condition: Stable Discharge Plan Plan Patient Disposition: HOME (Self Care) Patient condition on transfer: Stable Prescriptions/Referrals Prescriptions/Med Rec: No Action diphenhydramine HCl 50 mg capsule 50 mg PO Q8H PRN (Reason: itching) Qty: 20 0RF estradiol 2 mg tablet 2 mg PO QDAY Patient Comments: take 1 tablet by mouth once daily trazodone 300 mg tablet 300 mg PO HS PRN (Reason: depression) propranolol 10 mg tablet 10 mg PO HS Patient Comments: take 1 tablet by mouth once daily for TREMORS montelukast 10 mg tablet 10 mg PO HS donepezil 5 mg tablet 5 mg PO HS gabapentin 400 mg capsule Patient Comments: take 1 capsule by mouth every 8 hours if needed for NEUROPATHY oxycodone-acetaminophen 10-325 mg tablet 10 - 325 tab PO Q6HR PRN (Reason: Pain (Scale Score 4-6)) Patient Comments: take 1 tablet by mouth three times a day to four times a day if needed for 30 DAYS ropinirole 2 mg tablet 2 mg PO TID Patient Comments: take 1 tablet by mouth three times a day spironolactone 100 mg tablet Patient Comments: take 1 tablet by mouth once daily levothyroxine [Synthroid] 25 mcg tablet Patient Comments: take 1 tablet by mouth once daily polyethylene glycol 3350 [HealthyLax] 17 gram Powder In Packet 17 g PO QDAY 30 Days Qty: 30 12RF nystatin 100,000 unit/gram powder 1 applic topical QDAY Qty: 60 1RF ciprofloxacin HCl [Cipro] 500 mg tablet 500 mg PO BID Qty: 14 0RF Rx Instructions: Patient is not allergic to Cipro potassium chloride 8 mEq capsule, extended release 8 meq PO DAILY metronidazole 500 mg tablet 500 mg PO BID furosemide 20 mg tablet 20 mg PO DAILY hydroxyzine HCl 10 mg tablet 10 mg PO TID PRN (Reason: Anxiety) venlafaxine 150 mg capsule,extended release 24hr 150 mg PO DAILY Patient Comments: TAKE 1 CAPSULE BY MOUTH EVERY DAY nifedipine 30 mg tablet extended release 30 mg PO DAILY Patient Comments: TAKE 1 TABLET BY MOUTH EVERY DAY lubiprostone 8 mcg capsule 8 mcg PO BID PRN (Reason: constipation ) Patient Comments: TAKE 1 CAPSULE BY MOUTH TWICE A DAY WITH FOOD & WITH WATER spironolactone 100 mg tablet 100 mg PO DAILY Patient Comments: TAKE 1 TABLET BY MOUTH EVERY DAY pantoprazole 20 mg tablet,delayed release (DR/EC) 40 mg PO DAILY Patient Comments: TAKE 2 TABLETS BY MOUTH EVERY DAY NEEDED FOR ACID REFLUX docusate sodium 100 mg capsule 100 mg PO HS Patient Comments: TAKE 1 CAPSULE BY MOUTH EVERY DAY AT BEDTIME NEEDED duloxetine 60 mg capsule,delayed release(DR/EC) 60 mg PO HS Patient Comments: TAKE ONE CAPSULE BY MOUTH ONCE IN THE EVENING. lidocaine 5 % adhesive patch,medicated 1 patch topical QDAY Qty: 15 0RF Rx Instructions: leave on most painful area for up to 12 hrs cyclobenzaprine 10 mg tablet 10 mg PO TID PRN (Reason: muscle spasm) Qty: 30 0RF Referrals: No Primary/Family,Physician [Primary Care Provider] - In 1 week Problem List Clinical Impression: UTI (urinary tract infection), Chronic back pain Patient/Caregiver Discharge Instructions Education Materials: ED Back Pain (Acute or Chronic), ED Chronic Pain Additional Instructions: Take antibiotics as prescribed. Continue taking your pain medications at home. Follow-up with your primary care provide in the next few days. Return to the ED for any worsening symptoms or any other concerns. Print Language: Tongan Stand Alone Forms: [facility] Award Info., Patient Portal Info Letter
[2025-01-25] MEDS: HYDROmorphone INJ 2 MG/ML VIAL 1 MG IM (01:05)
== END 2025-01-25 01:41 | disposition home or self-care (01) ==
PROVIDERS: Physician Assistant; Emergency Provider Emergency Medicine
DX: N39.0 Urinary tract infection, site not specified (principal); M54.6 Pain in thoracic spine; J98.11 Atelectasis; R00.0 Tachycardia, unspecified; I10 Essential (primary) hypertension; G89.29 Other chronic pain
CPT/HCPCS: 36415; 71045; 80053; 80307; 81001; 84484; 85025; 87086; 93005; 96372; J1171; A9270

== ENCOUNTER → 2025-02-12 | Outpatient (CLI) | payer MEDICARE, BC, SELFPAY | END | disposition home or self-care (01) | LOC: SWHD 12:47 | PROVIDERS: PCP Family Medicine; Referring Provider Family Medicine; Visit Provider Student in an Organized Health Care Education/Training Program | DX: T21.52XA Corrosion of first degree of abdominal wall, initial encounter (principal); L98.499 Non-pressure chronic ulcer of skin of other sites with unspecified severity; D64.9 Anemia, unspecified; J45.909 Unspecified asthma, uncomplicated; I10 Essential (primary) hypertension; M06.9 Rheumatoid arthritis, unspecified; M79.7 Fibromyalgia; G25.81 Restless legs syndrome; Z91.81 History of falling; E66.9 Obesity, unspecified; E03.9 Hypothyroidism, unspecified; G89.29 Other chronic pain | CPT/HCPCS: 99212; A9270; G0463 ==

== ENCOUNTER → 2025-02-19 | Outpatient (CLI) | payer MEDICARE, BC, SELFPAY | END | disposition home or self-care (01) | LOC: SWHD 12:59 | PROVIDERS: PCP Family Medicine; Referring Provider Family Medicine; Visit Provider Student in an Organized Health Care Education/Training Program | DX: T21.52XA Corrosion of first degree of abdominal wall, initial encounter (principal); S31.119A Laceration without foreign body of abdominal wall, unspecified quadrant without penetration into peritoneal cavity, initial encounter; X58.XXXA Exposure to other specified factors, initial encounter; D64.9 Anemia, unspecified; J45.909 Unspecified asthma, uncomplicated; I10 Essential (primary) hypertension; M06.9 Rheumatoid arthritis, unspecified; M79.7 Fibromyalgia; G25.81 Restless legs syndrome; Z91.81 History of falling; E66.9 Obesity, unspecified; E03.9 Hypothyroidism, unspecified; G89.29 Other chronic pain | CPT/HCPCS: 17250; 99213; A9270; G0463 ==

== ENCOUNTER → 2025-03-02 | Outpatient (CLI) | payer MEDICARE, BC, SELFPAY ==
[2025-03-02 09:44] LABS: Alanine Aminotransferase 19 U/L (10-49); Albumin, Serum 4.0 gm/dL (3.4-4.8); Albumin/Globulin Ratio 1.9 (1.2-2.2); Alkaline Phosphatase 92 U/L (46-116); Anion Gap 10 (7-16); Aspartate Amino Transferase 20 U/L (0-34); BUN/Creatinine Ratio 13 Ratio (12-20); Bilirubin,Total 0.4 mg/dL (0.3-1.2); Blood Urea Nitrogen 19 mg/dL (9-23); Calcium 10.0 mg/dL (8.3-10.6); Calcium (Corrected) 10.0 mg/dL (8.5-10.1); Carbon Dioxide 26.3 mMol/L (20.0-31.0); Chloride 108 mMol/L (98-107); Creatinine (Component) 1.5 mg/dL (0.6-1.3); Globulin 2.1 gm/dL (2.3-3.5); Glucose 95 mg/dL (74-106); Osmolality,Calculated 289 (275-295); Potassium 5.7 mMol/L (3.4-5.1); Sodium 144 mMol/L (136-145); Thyroid Stimulating Hormone 5.40 uIU/mL (0.55-4.78); Total Protein 6.1 gm/dL (5.7-8.2); eGFR 38 See Note
[2025-03-02 09:45] LABS: T4 (Thyroxine) 5.5 mcg/dL (4.5-10.9)
== END | disposition home or self-care (01) ==
PROVIDERS: PCP Family Medicine; Referring Provider Family Medicine; Visit Provider Family Medicine
DX: M54.51 Vertebrogenic low back pain (principal); G89.4 Chronic pain syndrome; K21.9 Gastro-esophageal reflux disease without esophagitis; E03.9 Hypothyroidism, unspecified
CPT/HCPCS: 36415; 80053; 84436; 84443

== ENCOUNTER → 2025-03-02 | Outpatient (CLI) | payer MEDICARE, BC, SELFPAY ==
[2025-03-02 11:41] LABS: Potassium 5.6 mMol/L (3.4-5.1)
== END | disposition home or self-care (01) ==
PROVIDERS: PCP Family Medicine; Referring Provider Family Medicine; Visit Provider Family Medicine
DX: E87.5 Hyperkalemia (principal)
CPT/HCPCS: 36415; 84132

== ENCOUNTER → 2025-03-05 | Outpatient (CLI) | payer MEDICARE, BC, SELFPAY ==
[2025-03-05 09:53] LABS: Alanine Aminotransferase 17 U/L (10-49); Albumin, Serum 3.9 gm/dL (3.4-4.8); Albumin/Globulin Ratio 2.1 (1.2-2.2); Alkaline Phosphatase 82 U/L (46-116); Anion Gap 10 (7-16); Aspartate Amino Transferase 22 U/L (0-34); BUN/Creatinine Ratio 12 Ratio (12-20); Bilirubin,Total 0.4 mg/dL (0.3-1.2); Blood Urea Nitrogen 15 mg/dL (9-23); Calcium 9.5 mg/dL (8.3-10.6); Calcium (Corrected) 9.6 mg/dL (8.5-10.1); Carbon Dioxide 29.2 mMol/L (20.0-31.0); Chloride 105 mMol/L (98-107); Creatinine (Component) 1.3 mg/dL (0.6-1.3); Globulin 1.9 gm/dL (2.3-3.5); Glucose 104 mg/dL (74-106); Osmolality,Calculated 287 (275-295); Potassium 4.6 mMol/L (3.4-5.1); Sodium 144 mMol/L (136-145); Total Protein 5.8 gm/dL (5.7-8.2); eGFR 45 See Note
== END | disposition home or self-care (01) ==
LOC: COPL 08:25
PROVIDERS: PCP Nurse Practitioner Family; Referring Provider Nurse Practitioner Family; Visit Provider Nurse Practitioner Family
DX: E87.5 Hyperkalemia (principal)
CPT/HCPCS: 36415; 80053

== ENCOUNTER → 2025-03-12 | Outpatient (CLI) | payer MEDICARE, BC, SELFPAY | END | disposition home or self-care (01) | LOC: SWHD 13:43 | PROVIDERS: PCP Family Medicine; Referring Provider Family Medicine; Visit Provider Student in an Organized Health Care Education/Training Program | DX: T21.52XA Corrosion of first degree of abdominal wall, initial encounter (principal); S31.119A Laceration without foreign body of abdominal wall, unspecified quadrant without penetration into peritoneal cavity, initial encounter; X58.XXXA Exposure to other specified factors, initial encounter; D64.9 Anemia, unspecified; J45.909 Unspecified asthma, uncomplicated; I10 Essential (primary) hypertension; M06.9 Rheumatoid arthritis, unspecified; M79.7 Fibromyalgia; G25.81 Restless legs syndrome; Z91.81 History of falling; E66.9 Obesity, unspecified; E03.9 Hypothyroidism, unspecified; G89.29 Other chronic pain | CPT/HCPCS: 99212; G0463 ==

== ENCOUNTER → 2025-03-14 | Outpatient (CLI) | payer MEDICARE, BC, SELFPAY ==
[2025-03-14 14:57] LABS: Collection Type, Urine Clean Catch
[2025-03-14 17:09] LABS: Bacteria,Urine Rare; Bilirubin,Urine Negative (Negative); Blood,Urine 2+ (Negative); Clarity,Urine Clear (Clear/Hazy); Color,Urine Yellow (Lt Yel-Yel); Glucose, Urine Negative (Negative); Hyaline Casts,Urine < 1 /hpf (0-1); Ketones,Urine Negative (Negative); Leukocyte Esterase,Urine Positive (Negative); Nitrite,Urine Negative (Negative); PH,Urine 6.0 (5.0-7.0); Protein,Urine Negative (Neg - Trace); RBC,Urine 12 /hpf (0-3); Specific Gravity,Urine 1.023 (1.001-1.035); Squamous Epithelial Cell,Urine 2 /hpf (0-5); Urobilinogen,Urine Negative mg/dL (0.0-1.0); WBC,Urine 30 /hpf (0-5)
== END | disposition home or self-care (01) ==
LOC: SLDO 14:52
PROVIDERS: PCP Family Medicine; Referring Provider Family Medicine; Visit Provider Family Medicine
DX: N39.0 Urinary tract infection, site not specified (principal)
CPT/HCPCS: 81001; 87086

== ENCOUNTER 2025-03-16 18:24 | Emergency (ER) | payer MEDICARE, BC, SELFPAY ==
[2025-03-16 18:45] VITALS: BP 135/80; PULSE 100; RESP 18; TEMP 36.8; O2SAT 94; BMI 41.6
--- NOTE | 2025-03-16 18:58 | PD.EDHA ---
ED Headache RME/HPI General Chief Complaint: Headache Stated Complaint: HEAD & NECK PAIN Time Seen by Provider: 03/16/25 18:56 Arrival date/time: 03/16/25 18:24 63F with history of CLBP s/p spinal fusion with pain pump, fibromyalgia/chronic MSK pain syndrome, peripheral neuropathy, recurrent SBOs/hernia surgeries, HTN, asthma, hypothyroidism, macrocytosis, constipation, and known lumbar fx presents to ED 1 week of head and neck pain w/o fall/trauma. Patient denies AMS, N/V, and vision changes. Limitations: no limitations Related Data Home Medications ?Medication ?Instructions ?Recorded ?Confirmed docusate sodium 100 mg capsule 100 mg PO HS 11/07/22 11/07/22 duloxetine 60 mg capsule,delayed 60 mg PO HS 11/07/22 10/29/23 release furosemide 20 mg tablet 20 mg PO DAILY 11/07/22 11/07/22 hydroxyzine HCl 10 mg tablet 10 mg PO TID PRN Anxiety 11/07/22 11/07/22 lubiprostone 8 mcg capsule 8 mcg PO BID PRN constipation 11/07/22 10/29/23 metronidazole 500 mg tablet 500 mg PO BID 11/07/22 11/07/22 nifedipine 30 mg tablet,extended 30 mg PO DAILY 11/07/22 11/07/22 release pantoprazole 20 mg tablet,delayed 40 mg PO DAILY 11/07/22 10/29/23 release potassium chloride 8 mEq 8 meq PO DAILY 11/07/22 10/29/23 capsule,extended release spironolactone 100 mg tablet 100 mg PO DAILY 11/07/22 10/29/23 venlafaxine 150 mg 150 mg PO DAILY 11/07/22 10/29/23 capsule,extended release 24 hr donepezil 5 mg tablet 5 mg PO HS 10/29/23 10/29/23 estradiol 2 mg tablet 2 mg PO QDAY 10/29/23 10/29/23 gabapentin 400 mg capsule mg 10/29/23 levothyroxine 25 mcg tablet mcg 10/29/23 (Synthroid) montelukast 10 mg tablet 10 mg PO HS 10/29/23 10/29/23 oxycodone-acetaminophen 10 mg-325 10 - 325 tab PO Q6HR PRN Pain 05/03/24 05/03/24 mg tablet (Scale Score 4-6) propranolol 10 mg tablet 10 mg PO HS 10/29/23 10/29/23 ropinirole 2 mg tablet 2 mg PO TID 10/29/23 10/30/23 spironolactone 100 mg tablet mg 10/29/23 trazodone 300 mg tablet 300 mg PO HS PRN depression 10/29/23 10/29/23 Previous Rx's ?Medication ?Instructions ?Recorded diphenhydramine HCl 50 mg capsule 50 mg PO Q8H PRN itching #20 caps 12/27/22 polyethylene glycol 3350 17 gram 17 g PO QDAY 30 days #30 ea 10/31/23 oral powder packet (HealthyLax) nystatin 100,000 unit/gram topical 1 applic topical QDAY #60 grams 07/03/24 powder ciprofloxacin HCl 500 mg tablet 500 mg PO BID Urinary tract 11/27/24 (Cipro) infection #14 tabs cyclobenzaprine 10 mg tablet 10 mg PO TID PRN muscle spasm #30 12/07/24 tabs lidocaine 5 % topical patch 1 patch topical QDAY #15 ea 12/07/24 cephalexin 500 mg capsule 500 mg PO BID #14 caps 01/25/25 Allergies Allergy/AdvReac Type Severity Reaction Status Date / Time ceftriaxone Allergy Severe SWELLING Verified 03/16/25 18:27 TO LIPS, VOMITING, NAUSEA ibuprofen Allergy Severe SWELLING Verified 03/16/25 18:27 linezolid Allergy Severe ABD Verified 03/16/25 18:27 CRAMPING, N/V/D mushroom Allergy Severe VOMITING Verified 03/16/25 18:27 NSAIDS (Non-Steroidal Allergy Severe SWELLING, Verified 03/16/25 18:27 Anti-Inflamma SOB ondansetron Allergy Severe REDNESS Verified 03/16/25 18:27 AND PAIN AT SITE Penicillins Allergy Severe CAN'T Verified 03/16/25 18:27 BREATHE shellfish derived Allergy Severe Difficulty Verified 03/16/25 18:27 Breathing Sulfa (Sulfonamide Allergy Severe RASH Verified 03/16/25 18:27 Antibiotics) ciprofloxacin (From Cipro) Allergy Intermediate Redness of Verified 03/16/25 18:27 Skin erythromycin base Allergy Intermediate RASH Verified 03/16/25 18:27 doxycycline Allergy Mild Abdominal Verified 03/16/25 18:27 Pain iodine Allergy Mild SOB, Verified 09/19/25 18:27 THROAT SWELLING, HIVES, VOMITING Review of Systems Review of Systems Systems Reviewed: All systems reviewed, normal except as documented Constitutional Constitutional: Reports as per HPI and Reports headache(s) ENT Ears, Nose, Mouth, and Throat: Reports headache(s) and Reports neck pain Musculoskeletal Musculoskeletal: Reports as per HPI and Reports neck pain Neurologic Neurologic: Reports headache(s) Past Medical History Past Medical History NEUROLOGIC: Positive Neurological Disorders, Cerebrovascular Accident, Transient Ischemic Attacks (TIA) (per pt recalls having one many years ago), Seizures (over 5 years), Head Trauma and Spinal Cord Injury; Negative Dementia, Alzheimer's Disease, Parkinson's Disease, Brain Tumor, Meningitis, Epilepsy, Multiple Sclerosis, Cerebral Palsy, Amyotrophic Lateral Sclerosis (ALS/Cookie Gehrig's), Guillain-Columbus Syndrome, Spina Bifida, Paralysis, Peripheral Neuropathy, Mcknight's Palsy, Subdural Hematoma, Migraine or Traumatic Brain Injury CARDIAC: Positive Edema, Cellulitis, Deep Vein Thrombosis (per pt its been over 5 years) and Hypertension; Negative Cardiac Disorders, Myocardial Infarction, Cardiac Arrhythmia, Atrial Fibrillation, Angina, Heart Murmur, Coronary Artery Disease, Atherosclerotic Heart Disease, Peripheral Vascular Disease, Hypercholesterolemia, Aneurysm, Congestive Heart Failure, Congenital Heart Disease, Valvular Heart Disease, Rheumatic Fever, Cardiomyopathy, Pericarditis, Hypotension or Varicose Veins RESPIRATORY: Positive Asthma and Pneumonia; Negative Chronic Obstructive Pulmonary Disease (COPD), Bronchitis, Emphysema, Pulmonary Fibrosis, Cystic Fibrosis, Tuberculosis, Pulmonary Embolism, Pulmonary Edema or Sleep Apnea GASTROINTESTINAL: Positive Gastrointestinal Disorders, Obstructive Bowel, Hiatal Hernia and Obesity; Negative Hepatitis, Cirrhosis, Pancreatitis, Celiac Disease, Gall Bladder Disease, Gastrointestinal Bleed, Esophageal Varices, Bills's Esophagus, Colitis, Ulcerative Colitis, Diverticulitis, Diverticulosis, Ulcer, Colorectal Cancer, Crohn's Disease, Hemorrhoids or Gastroesophageal Reflux Disease GENITOURINARY: Positive Genitourinary Disorders and Kidney Stones; Negative Renal Disease, Polycystic Kidney Disease, Neurogenic Bladder, Inguinal Hernia, Dialysis, Prostate Cancer or Benign Prostatic Hyperplasia REPRODUCTIVE: Positive Previous Pregnancies; Negative Breast Cancer, Endometriosis, Genital Herpes, Gonorrhea, Pelvic Inflammatory Disease, Syphilis, Testicular Cancer or Uterine Prolapse MUSCULOSKELETAL: Positive Musculoskeletal Disorders, Arthritis, Degenerative Disk Disease, Carpal Tunnel Syndrome, Fibromyalgia and Fractures (back surgeries); Negative Muscular Dystrophy, Myasthenia Gravis, Marfan's Syndrome, Bone Cancer, Rheumatoid Arthritis, Osteoporosis, Gout, Scoliosis, Degenerative Joint Disease, Osteomyelitis or Poliovirus ENT: Positive Head Trauma; Negative Cataracts, Glaucoma, Blind, Retinal Detachment, Macular Degeneration, Ear Infection, Deafness or Eye Prosthesis ENDOCRINE: Positive Hyperthyroidism; Negative Endocrine Disorders, Diabetes Mellitus Type 1, Diabetes Mellitus Type 2, Hypoglycemia, [place]'s Syndrome, [place]'s Disease, Hypothyroidism, Parathyroid Disease, Pituitary Disease, Systemic Lupus Erythematosus, Syndrome of Inappropriate Antidiuretic Hormone (SIADH), Adrenal Disease or Graves' Disease HEMATOLOGIC: Positive Blood Disorders, Anemia and Clotting Problems (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); Negative Leukemia, Hemophilia, Thalassemia or Sickle Cell Disease PSYCHO/SOCIAL: Positive Depression and Anxiety; Negative Psychiatric Problems, Schizophrenia, Recreational Drug Use, Bipolar Disorder, Behavior Problems, Self-Mutilation, Attention Deficit Disorder, Attention Deficit Hyperactivity Disorder, Depression, Post Traumatic Stress Disorder or Eating Disorder OTHER HISTORY: Positive Hospitalization, Falls, Blood Transfusions, Chicken Pox, Measles, Mumps and Rubella (Pashto Measles); Negative Autoimmune Disease, Down Syndrome, Autism, Developmental Delay, Blood Transfusion Reaction, Anesthesia Reactions, Organ Transplant, Chemotherapy, Radiation Therapy, Hyperbaric Therapy, MRSA, Vancomycin-Resistant Enterococci, Human Immunodeficiency Virus (HIV), Pertussis, Cancer, Breast Cancer, Cervical Cancer, Colorectal Cancer, Lung Cancer, Ovarian Cancer, Prostate Cancer or Testicular Cancer Family History FAMILY HISTORY: Positive Family Psychiatric Problems, Family Respiratory Disorders, Family Cardiac Disorders, Family Gastrointestinal Problems, Family Cancer and Family Surgery; Negative Family Anesthesia Reaction Surgical History SURGICAL: Positive Ear Surgery, Eye Surgery, Abdominal Surgery, Gastric Bypass Surgery, Bowel Surgery, Joint Replacement, Tubal Ligation and Section; Negative Cardiac Surgery, Open Heart Surgery, Coronary Artery Bypass Graft, Valve Replacement, Vascular Surgery, Coronary Stent, Cardiac Catheterization, Pacemaker, Angiogram, Auto Implanted Cardiovert Defib, Carotid Endarterectomy, Endocrine Surgery, Thyroidectomy, Nose Surgery, Oral Surgery, Tonsillectomy, Adenoidectomy, Cochlear Implant, Corneal Transplant, Throat Surgery, Tracheostomy, Gastrostomy, Nephrectomy, Transurethral Resection, Amputation, Open Reduction Internal Fixation, Arthroscopy, Neurologic Surgery, Brain Shunt, Mastectomy, Lumpectomy, Hysterectomy or Organ Transplant Social History SMOKING STATUS: Never smoker SECOND HAND EXPOSURE: No SUBSTANCE USE: does not use ED Exam General Limitations: Present no limitations General appearance: Present alert and in no apparent distress Head Head exam: Present atraumatic Eye Eye exam: Present normal appearance, PERRL and EOMI ENT ENT exam: Present normal exam, normal oropharynx and mucous membranes moist Neck Neck exam: Present normal inspection, full ROM and trachea midline Chest Chest inspection: Present normal inspection and symmetric chest wall rise Neurological Exam Neurological exam: Present alert, oriented X3 and CN II-XII intact Psychiatric Psychiatric exam: Present normal affect and normal mood Skin Skin exam: Present warm, dry, intact and normal color Course Quality Measures none Orders Category Date Time Status CT head/brain wo con Stat Exams 03/16/25 18:56 Ordered Metoclopramide [Reglan] Med 03/16/25 18:56 Discontinued 10 mg PO X1 ONE Vital Signs Vital signs: Vital Signs Temperature 98.3 F 03/16/25 18:45 Pulse Rate 100 03/16/25 18:45 Respiratory Rate 18 03/16/25 18:45 Blood Pressure 135/80 H 03/16/25 18:45 Pulse Oximetry (%) 94 L 03/16/25 18:45 Oxygen Delivery Method Room Air 03/16/25 18:45 O2 at 94% on RA Headache MDM Narrative MDM Narrative:: 63F with history of CLBP s/p spinal fusion with pain pump, fibromyalgia/chronic MSK pain syndrome, peripheral neuropathy, recurrent SBOs/hernia surgeries, HTN, asthma, hypothyroidism, macrocytosis, constipation, and known lumbar fx presents to ED 1 week of head and neck pain w/o fall/trauma. Patient denies AMS, N/V, and vision changes. Physical exam reveals normal pupil response and EOM. CN II-XII grossly intact. Speech normal. Normal WOB. Patient is afebrile, calm, alert, and smiling/laughing. Patient cannot have MRIs. Patient eloped. Patient data External records reviewed:: [facility] previous records Clinical information provided by:: patient Social determinants that could affect healthcare access:: none Patient has the following chronic illnesses:: CLBP s/p spinal fusion with pain pump, fibromyalgia/chronic MSK pain syndrome, peripheral neuropathy, recurrent SBOs/hernia surgeries, HTN, asthma, hypothyroidism, macrocytosis, constipation, How is presenting disease/condition affected by chronic disease/condition?: exacerbated by Evaluation data The following diagnostics were reviewed and interpreted by me:: radiology exam(s) Lab and/or radiology exams considered but not ordered:: ordered Interpretation Summary: above Medications / Prescriptions Medications or Prescriptions considered but not ordered:: ordered Medication administrations:: Medication Administration History Discontinued Medications Metoclopramide HCl (Metoclopramide 5 Mg Tablet) 10 mg PO X1 ONE Stop: 03/16/25 18:57 Last Admin: 03/16/25 19:30 Dose: 10 mg Documented By: ADARSH above Consultations Consultation(s) initiated? (list below): No Diagnosis Differential diagnosis headache: migraine, tension headache, subarachnoid hemorrhage, headache, meningitis, sinusitis and postconcussion syndrome Most likely diagnosis given after review of the tests above:: [place] Admission Indicated Admission indicated?: not indicated Admission Request Was there a request for admission?: No Disposition Plan Disposition Plan: other (specify) (eloped) Discharge Plan Plan Patient Disposition: Elopement Prescriptions/Referrals Prescriptions/Med Rec: No Action diphenhydramine HCl 50 mg capsule 50 mg PO Q8H PRN (Reason: itching) Qty: 20 0RF estradiol 2 mg tablet 2 mg PO QDAY Patient Comments: take 1 tablet by mouth once daily trazodone 300 mg tablet 300 mg PO HS PRN (Reason: depression) propranolol 10 mg tablet 10 mg PO HS Patient Comments: take 1 tablet by mouth once daily for TREMORS montelukast 10 mg tablet 10 mg PO HS donepezil 5 mg tablet 5 mg PO HS gabapentin 400 mg capsule Patient Comments: take 1 capsule by mouth every 8 hours if needed for NEUROPATHY oxycodone-acetaminophen 10-325 mg tablet 10 - 325 tab PO Q6HR PRN (Reason: Pain (Scale Score 4-6)) Patient Comments: take 1 tablet by mouth three times a day to four times a day if needed for 30 DAYS ropinirole 2 mg tablet 2 mg PO TID Patient Comments: take 1 tablet by mouth three times a day spironolactone 100 mg tablet Patient Comments: take 1 tablet by mouth once daily levothyroxine [Synthroid] 25 mcg tablet Patient Comments: take 1 tablet by mouth once daily polyethylene glycol 3350 [HealthyLax] 17 gram Powder In Packet 17 g PO QDAY 30 Days Qty: 30 12RF nystatin 100,000 unit/gram powder 1 applic topical QDAY Qty: 60 1RF ciprofloxacin HCl [Cipro] 500 mg tablet 500 mg PO BID Qty: 14 0RF Rx Instructions: Patient is not allergic to Cipro cephalexin 500 mg capsule 500 mg PO BID Qty: 14 0RF Rx Instructions: Patient states that she is not allergic to cephalexin and has taken it in the past. potassium chloride 8 mEq capsule, extended release 8 meq PO DAILY metronidazole 500 mg tablet 500 mg PO BID furosemide 20 mg tablet 20 mg PO DAILY hydroxyzine HCl 10 mg tablet 10 mg PO TID PRN (Reason: Anxiety) venlafaxine 150 mg capsule,extended release 24hr 150 mg PO DAILY Patient Comments: TAKE 1 CAPSULE BY MOUTH EVERY DAY nifedipine 30 mg tablet extended release 30 mg PO DAILY Patient Comments: TAKE 1 TABLET BY MOUTH EVERY DAY lubiprostone 8 mcg capsule 8 mcg PO BID PRN (Reason: constipation ) Patient Comments: TAKE 1 CAPSULE BY MOUTH TWICE A DAY WITH FOOD & WITH WATER spironolactone 100 mg tablet 100 mg PO DAILY Patient Comments: TAKE 1 TABLET BY MOUTH EVERY DAY pantoprazole 20 mg tablet,delayed release (DR/EC) 40 mg PO DAILY Patient Comments: TAKE 2 TABLETS BY MOUTH EVERY DAY NEEDED FOR ACID REFLUX docusate sodium 100 mg capsule 100 mg PO HS Patient Comments: TAKE 1 CAPSULE BY MOUTH EVERY DAY AT BEDTIME NEEDED duloxetine 60 mg capsule,delayed release(DR/EC) 60 mg PO HS Patient Comments: TAKE ONE CAPSULE BY MOUTH ONCE IN THE EVENING. lidocaine 5 % adhesive patch,medicated 1 patch topical QDAY Qty: 15 0RF Rx Instructions: leave on most painful area for up to 12 hrs cyclobenzaprine 10 mg tablet 10 mg PO TID PRN (Reason: muscle spasm) Qty: 30 0RF Referrals: Ronda Panchal MD [Primary Care Provider, Family Practice] - In 1 week Problem List Clinical Impression: Headache Patient/Caregiver Discharge Instructions Print Language: Romanian PA/MULTIMEDIA PRODUCER Supervising Physician PA/MULTIMEDIA PRODUCER Supervising Physician: Dr. Franco
[2025-03-16] MEDS: METOCLOPRAMIDE 5 MG TABLET 10 MG PO (19:30)
--- NOTE | 2025-03-16 20:53 | PC.NURSE ---
PT INFORMED ME SHE IS GOING HOME. CAN'T WAIT NO MORE.
== END 2025-03-16 20:54 | disposition left against medical advice (07) ==
PROVIDERS: Emergency Provider Emergency Medicine; PCP Family Medicine
DX: R51.9 Headache, unspecified (principal); Z53.29 Procedure and treatment not carried out because of patient's decision for other reasons
CPT/HCPCS: 99283; A9270

== ENCOUNTER → 2025-04-16 | Outpatient (CLI) | payer MEDICARE, SELFPAY ==
--- NOTE | 2025-04-16 | XR_ITS ---
EXAMINATION: PA lateral chest 2 views TECHNIQUE: Upright PA lateral chest 2 views Date and time: April 16, 2025, 200 4:00 p.m., comparison January 24, 2025 INDICATIONS: Preop FINDINGS: Reduced inspiratory effort Mild to moderate elevation right hemidiaphragm No significant cardiac enlargement Stable scarring in the left midlung No pneumonia or pulmonary edema Prominent osteopenia Extensive thoracolumbar stabilization again depicted with severe osteopenia IMPRESSION: No pneumonia or pulmonary edema
[2025-04-16 14:11] LABS: Basophils # (Auto) 0.0 Thou/mm3 (0.0-0.2); Basophils % (Auto) 1 % (0-2.5); Eosinophils # (Auto) 0.2 Thou/mm3 (0.0-0.5); Eosinophils % (Auto) 4 % (0-10); Hematocrit 38.7 % (36.0-46.0); Hemoglobin 12.1 g/dL (12.0-16.0); Immature Granulocytes Auto 0.03 Thou/mm3 (0.00-0.00); Lymphocytes # (Auto) 1.6 Thou/mm3 (1.0-4.8); Lymphocytes % (Auto) 29 % (10-50); Mean Corpuscular HGB Conc 31.3 g/dl (31.0-37.0); Mean Corpuscular Hemoglobin 33.1 pg (25.0-35.0); Mean Corpuscular Volume 106 fL (80-100); Monocytes # (Auto) 0.8 Thou/mm3 (0.0-0.8); Monocytes % (Auto) 14 % (0-12); Neutrophils # (Auto) 2.7 Thou/mm3 (1.8-7.7); Neutrophils % (Auto) 51 % (37-80); Nucleated Red Blood Cell # 0.00 Thou/mm3 (0.00-0.00); Nucleated Red Blood Cell % 0 /100 WBC (0); Platelet Count 197 Thou/mm3 (140-440); RDW Standard Deviation 52.0 fL (36.4-46.3); Red Blood Count 3.66 Miln/mm3 (4.00-5.20); White Blood Count 5.4 Thou/mm3 (3.6-11.0)
[2025-04-16 14:15] LABS: Alanine Aminotransferase 19 U/L (10-49); Albumin, Serum 4.4 gm/dL (3.4-4.8); Albumin/Globulin Ratio 1.8 (1.2-2.2); Alkaline Phosphatase 88 U/L (46-116); Anion Gap 8 (7-16); Aspartate Amino Transferase 23 U/L (0-34); BUN/Creatinine Ratio 12 Ratio (12-20); Bilirubin,Total 0.4 mg/dL (0.3-1.2); Blood Urea Nitrogen 16 mg/dL (9-23); Calcium 9.8 mg/dL (8.3-10.6); Calcium (Corrected) 9.8 mg/dL (8.5-10.1); Carbon Dioxide 28.2 mMol/L (20.0-31.0); Chloride 106 mMol/L (98-107); Creatinine (Component) 1.3 mg/dL (0.6-1.3); Globulin 2.4 gm/dL (2.3-3.5); Glucose 85 mg/dL (74-106); Osmolality,Calculated 283 (275-295); Potassium 5.2 mMol/L (3.4-5.1); Sodium 142 mMol/L (136-145); Total Protein 6.8 gm/dL (5.7-8.2); eGFR 45 See Note
== END | disposition home or self-care (01) ==
LOC: CDIM 11:29 → COPL 12:16
PROVIDERS: PCP Family Medicine; Visit Provider Radiology Diagnostic Radiology
DX: Z79.899 Other long term (current) drug therapy (principal)
CPT/HCPCS: 36415; 71046; 80053; 85025; 87081

== ENCOUNTER 2025-05-03 17:28 | Emergency (ER) | payer MEDICARE, SELFPAY ==
[2025-05-03 17:29] VITALS: BMI 41.6
[2025-05-03 17:46] VITALS: BP 107/74; PULSE 108; RESP 20; TEMP 36.9; O2SAT 95
--- NOTE | 2025-05-03 18:04 | XR_ITS ---
Examination: CT chest, without intravenous contrast. CT abdomen, without intravenous contrast. CT pelvis, without intravenous contrast. 2-D sagittal and coronal reconstructions. 3-D reconstructions. Date and time of exam: May 03, 2025, 1840 hours INDICATIONS: Bilateral flank and back pain beginning 1 month ago chest pain CTDI vol (mgy) 21.1 DLP (MGycm) 1441 Technique: Multiple CT images, 3.0 mm slice thickness, obtained chest, abdomen, pelvis, with the high-resolution 64 slice scanner.. Sagittal and coronal 2-D reconstructions are obtained. 3-D reconstructions Low dose protocols were performed. One or more of the following dose reduction techniques were used; automated exposure control, adjustment of the mA and/or KV according to patient size, use of iterative reconstruction technique. Findings: Mild aneurysmal dilatation ascending thoracic aorta AP dimension 4 cm Heavy calcification left anterior descending coronary artery Mild enlargement left ventricle No paratracheal tracheobronchial or bronchopulmonary adenopathy 3 mm pleural-based pulmonary nodule right upper lobe 3 mm pulmonary nodule left lower lobe No lobar pneumonia or pulmonary edema No visualized liver or splenic lesion Absent gallbladder No common hepatic duct common bile duct stones Fatty replacement throughout atrophic pancreas No adrenal mass 2 mm nonobstructing right renal calculus Moderate left and mild right renal parenchymal scar formation No hydronephrosis or ureteral calculi Scarring in the umbilical region No pericecal inflammatory change No bowel obstruction Absent uterus Contracted urinary bladder Severe osteopenia Extensive transpedicular thoracic and lumbar stabilization, extensive lumbar laminectomy with postoperative change in the soft tissue posterior to the lumbar vertebral bodies, please see the CT lumbar spine report December 07, 2024 There is fluid density in the soft tissue posterior to L2-T12 measuring at least 2.4 cm in mediolateral dimension and 5 cm in AP dimension around AP dural pain stimulator IMPRESSION: Noncalcified pulmonary nodules as above, with the studies baseline recommend 6-month follow-up CT chest without contrast 2 mm nonobstructing right renal calculus Moderate left mild right renal parenchymal scar formation Extensive transpedicular thoracic and lumbar stabilization procedure with extensive lumbar laminectomy Extensive postoperative change in the soft tissue including fluid collection in the subcutaneous fatty tissue posteriorly at the T12-L2 level surrounding apparent neurostimulator leads, consider ultrasound soft tissue back follow-up to assess for seroma abscess, hematoma as clinically warranted
--- NOTE | 2025-05-03 18:05 | EDRME_ITS ---
Rapid Medical Screening Exam [facility] Arrival date/time: 05/03/25 17:28 64-year-old female presents to the emerged from today for complaint of back pain and right flank pain patient reports history of significant spinal surgery patient has Dilaudid pump Chief Complaint: Back Pain/Injury Vital signs: Vital Signs Temperature 98.5 F 05/03/25 17:46 Pulse Rate 108 H 05/03/25 17:46 Respiratory Rate 20 05/03/25 17:46 Blood Pressure 107/74 05/03/25 17:46 Pulse Oximetry (%) 95 05/03/25 17:46 Oxygen Delivery Method Room Air 05/03/25 17:46 Vital signs reviewed by provider: Yes Exam: On exam patient well-appearing does not appear toxic patient has generalized pain Patient has Dilaudid pump in place Clinical Impression: Lab work and imaging applied
[2025-05-03 18:49] LABS: Alanine Aminotransferase 16 U/L (10-49); Albumin, Serum 4.6 gm/dL (3.4-4.8); Albumin/Globulin Ratio 2.2 (1.2-2.2); Alkaline Phosphatase 91 U/L (46-116); Anion Gap 7 (7-16); Aspartate Amino Transferase 21 U/L (0-34); BUN/Creatinine Ratio 13 Ratio (12-20); Bilirubin,Total 0.3 mg/dL (0.3-1.2); Blood Urea Nitrogen 20 mg/dL (9-23); Calcium 9.4 mg/dL (8.3-10.6); Calcium (Corrected) 9.4 mg/dL (8.5-10.1); Carbon Dioxide 26.2 mMol/L (20.0-31.0); Chloride 106 mMol/L (98-107); Creatinine (Component) 1.5 mg/dL (0.6-1.3); Estimated Creatinine Clearance 48.0 mL/min (>60); Globulin 2.1 gm/dL (2.3-3.5); Glucose 97 mg/dL (74-106); Lipase 19 U/L (12-53); Osmolality,Calculated 280 (275-295); Potassium 5.4 mMol/L (3.4-5.1); Sodium 139 mMol/L (136-145); Total Protein 6.7 gm/dL (5.7-8.2); eGFR 38 See Note
[2025-05-03 18:52] LABS: Basophils # (Auto) 0.1 Thou/mm3 (0.0-0.2); Basophils % (Auto) 1 % (0-2.5); Eosinophils # (Auto) 0.3 Thou/mm3 (0.0-0.5); Eosinophils % (Auto) 4 % (0-10); Hematocrit 41.6 % (36.0-46.0); Hemoglobin 13.1 g/dL (12.0-16.0); Immature Granulocytes Auto 0.04 Thou/mm3 (0.00-0.00); Lymphocytes # (Auto) 2.2 Thou/mm3 (1.0-4.8); Lymphocytes % (Auto) 35 % (10-50); Mean Corpuscular HGB Conc 31.5 g/dl (31.0-37.0); Mean Corpuscular Hemoglobin 32.7 pg (25.0-35.0); Mean Corpuscular Volume 104 fL (80-100); Monocytes # (Auto) 0.7 Thou/mm3 (0.0-0.8); Monocytes % (Auto) 12 % (0-12); Neutrophils # (Auto) 3.0 Thou/mm3 (1.8-7.7); Neutrophils % (Auto) 48 % (37-80); Nucleated Red Blood Cell # 0.00 Thou/mm3 (0.00-0.00); Nucleated Red Blood Cell % 0 /100 WBC (0); Platelet Count 197 Thou/mm3 (140-440); RDW Standard Deviation 51.4 fL (36.4-46.3); Red Blood Count 4.01 Miln/mm3 (4.00-5.20); White Blood Count 6.3 Thou/mm3 (3.6-11.0)
[2025-05-03 19:08] LABS: Collection Type, Urine Clean Catch
[2025-05-03 19:16] LABS: Amorphous Crystals,Urine Present (Absent); Bacteria,Urine Rare; Bilirubin,Urine Negative (Negative); Blood,Urine Negative (Negative); Clarity,Urine Clear (Clear/Hazy); Color,Urine Yellow (Lt Yel-Yel); Culture Indicated,Urine Not Indicated; Glucose, Urine Negative (Negative); Ketones,Urine Negative (Negative); Leukocyte Esterase,Urine Positive (Negative); Nitrite,Urine Negative (Negative); PH,Urine 5.5 (5.0-7.0); Protein,Urine Trace (Neg - Trace); RBC,Urine 3 /hpf (0-3); Specific Gravity,Urine 1.027 (1.001-1.035); Squamous Epithelial Cell,Urine 2 /hpf (0-5); Urobilinogen,Urine 2.0 mg/dL (0.0-1.0); WBC,Urine 6 /hpf (0-5)
--- NOTE | 2025-05-03 21:15 | PD.EDBACK ---
ED Back Injury Pain RME/HPI General Chief Complaint: Back Pain/Injury Stated Complaint: BACK AND FLANK PAIN FOR 1 MONTH Time Seen by Provider: 05/03/25 19:29 Arrival date/time: 05/03/25 17:28 64-year-old female patient came in for evaluation regarding worsening back pain. Patient have extensive thoracolumbar fusion, that was done in [facility], several months ago, currently under contract of Dr. Hale in [place] [employer], seen yesterday, and currently on Dilaudid pump 5 mg/day came in because the pain is getting worse. Patient denies any fever denies any dysuria denies any other complaints. According to her her pain is 10 out of 10. Patient is ambulatory with assistance, currently on electric scooter. She denies any urinary incontinence she denies any bladder incontinence she denies any fever. Patient is asking for help regarding pain management tonight. She told me that she is going to see her pain management MD in the morning. RME / HPI RME / HPI Narrative: 05/03/25 17:28 64-year-old female presents to the emerged from today for complaint of back pain and right flank pain patient reports history of significant spinal surgery patient has Dilaudid pump Exam: On exam patient well-appearing does not appear toxic patient has generalized pain Patient has Dilaudid pump in place Impression: Lab work and imaging applied Related Data Home Medications ?Medication ?Instructions ?Recorded ?Confirmed docusate sodium 100 mg capsule 100 mg PO HS 11/07/22 11/07/22 duloxetine 60 mg capsule,delayed 60 mg PO HS 11/07/22 10/29/23 release furosemide 20 mg tablet 20 mg PO DAILY 11/07/22 11/07/22 hydroxyzine HCl 10 mg tablet 10 mg PO TID PRN Anxiety 11/07/22 11/07/22 lubiprostone 8 mcg capsule 8 mcg PO BID PRN constipation 11/07/22 10/29/23 metronidazole 500 mg tablet 500 mg PO BID 11/07/22 11/07/22 nifedipine 30 mg tablet,extended 30 mg PO DAILY 11/07/22 11/07/22 release pantoprazole 20 mg tablet,delayed 40 mg PO DAILY 11/07/22 10/29/23 release potassium chloride 8 mEq 8 meq PO DAILY 11/07/22 10/29/23 capsule,extended release spironolactone 100 mg tablet 100 mg PO DAILY 11/07/22 10/29/23 venlafaxine 150 mg 150 mg PO DAILY 11/07/22 10/29/23 capsule,extended release 24 hr donepezil 5 mg tablet 5 mg PO HS 10/29/23 10/29/23 estradiol 2 mg tablet 2 mg PO QDAY 10/29/23 10/29/23 gabapentin 400 mg capsule mg 10/29/23 levothyroxine 25 mcg tablet mcg 10/29/23 (Synthroid) montelukast 10 mg tablet 10 mg PO HS 10/29/23 10/29/23 oxycodone-acetaminophen 10 mg-325 10 - 325 tab PO Q6HR PRN Pain 10/29/23 10/29/23 mg tablet (Scale Score 4-6) propranolol 10 mg tablet 10 mg PO HS 10/29/23 10/29/23 ropinirole 2 mg tablet 2 mg PO TID 10/29/23 10/30/23 spironolactone 100 mg tablet mg 10/29/23 trazodone 300 mg tablet 300 mg PO HS PRN depression 10/29/23 10/29/23 Previous Rx's ?Medication ?Instructions ?Recorded diphenhydramine HCl 50 mg capsule 50 mg PO Q8H PRN itching #20 caps 12/27/22 polyethylene glycol 3350 17 gram 17 g PO QDAY 30 days #30 ea 10/31/23 oral powder packet (HealthyLax) nystatin 100,000 unit/gram topical 1 applic topical QDAY #60 grams 07/03/24 powder ciprofloxacin HCl 500 mg tablet 500 mg PO BID Urinary tract 11/27/24 (Cipro) infection #14 tabs cyclobenzaprine 10 mg tablet 10 mg PO TID PRN muscle spasm #30 12/07/24 tabs lidocaine 5 % topical patch 1 patch topical QDAY #15 ea 12/07/24 cephalexin 500 mg capsule 500 mg PO BID #14 caps 01/25/25 Allergies Allergy/AdvReac Type Severity Reaction Status Date / Time ceftriaxone Allergy Severe SWELLING Verified 05/03/25 17:33 TO LIPS, VOMITING, NAUSEA ciprofloxacin (From Cipro) Allergy Severe Redness of Verified 05/03/25 17:33 Skin doxycycline Allergy Severe Abdominal Verified 05/03/25 17:33 Pain erythromycin base Allergy Severe RASH Verified 05/03/25 17:33 ibuprofen Allergy Severe SWELLING Verified 05/03/25 17:33 iodine Allergy Severe SOB, Verified 05/03/25 17:33 THROAT SWELLING, HIVES, VOMITING linezolid Allergy Severe ABD Verified 05/03/25 17:33 CRAMPING, N/V/D mushroom Allergy Severe VOMITING Verified 05/03/25 17:33 NSAIDS (Non-Steroidal Allergy Severe SWELLING, Verified 05/03/25 17:33 Anti-Inflamma SOB ondansetron Allergy Severe REDNESS Verified 05/03/25 17:33 AND PAIN AT SITE Penicillins Allergy Severe CAN'T Verified 05/03/25 17:33 BREATHE shellfish derived Allergy Severe Difficulty Verified 05/03/25 17:33 Breathing Sulfa (Sulfonamide Allergy Severe RASH Verified 05/03/25 17:33 Antibiotics) Review of Systems Review of Systems Narrative Review of Systems: Review of system reviewed and within normal limits except mentioned in HPI ED Exam Narrative Physical exam: VITAL SIGNS: Reviewed. GENERAL APPEARANCE: Alert and interactive, follows commands, no acute distress, HEAD AND FACE: Non-traumatic. ENT: PERRL, pink conjunctivitis, eyelid no trauma, Mucous membrane moist. NECK: Supple, nontender, no nuchal rigidity. CHEST: No tenderness, no crepitus, no paradoxical movement, no retractions. LUNGS: Clear, well ventilated, symmetric, no rales, no wheezing, no ronchi, no stridor, good breath sounds bilaterally. HEART: Regular rate, regular rhythm, no murmur, no gallops. ABDOMEN: Soft, positive bowel sounds, nondistended, no guarding, nontender, no rebound, no masses, RECTAL: Deferred. GENITAL: Deferred. NEUROLOGICAL: Gross motor function intact sensory function intact, Appropriate for age. MUSCULOSKELETAL: Thoracolumbar tenderness, midline scar no redness no swelling, limited range of motion. EXTREMITIES: Nontender, full range of motion. SKIN: Color pink, dry, no rash, no lacerations, no abrasions, no contusions. LYMPHATICS: Deferred. Course Quality Measures none Orders Category Date Time Status CT chest abdomen pelvis wo Stat Exams 05/03/25 18:04 Completed CBC Stat Lab 05/03/25 18:15 Completed Comprehensive Metabolic Panel Stat Lab 05/03/25 18:15 Completed Lipase Stat Lab 05/03/25 18:15 Completed UA, C/S IF [Urinalysis, C/S if Indicated] Stat Lab 05/03/25 18:35 Completed HYDROmorphone INJ [Dilaudid Inj] Med 05/03/25 21:14 Discontinued 2 mg IM X1 ONE Vital Signs Vital signs: Vital Signs Temperature 98.5 F 05/03/25 17:46 Pulse Rate 108 H 05/03/25 17:46 Respiratory Rate 20 05/03/25 17:46 Blood Pressure 107/74 05/03/25 17:46 Pulse Oximetry (%) 95 05/03/25 17:46 Oxygen Delivery Method Room Air 05/03/25 17:46 Back Pain / Injury MDM Narrative MDM Narrative:: 64-year-old female patient came in for evaluation regarding worsening back pain. Patient have extensive thoracolumbar fusion, that was done in [facility], several months ago, currently under contract of Dr. Hale in [place] [employer], seen yesterday, and currently on Dilaudid pump 5 mg/day came in because the pain is getting worse. Patient denies any fever denies any dysuria denies any other complaints. According to her her pain is 10 out of 10. Patient is ambulatory with assistance, currently on electric scooter. She denies any urinary incontinence she denies any bladder incontinence she denies any fever. Patient is asking for help regarding pain management tonight. She told me that she is going to see her pain management MD in the morning. Patient's workup today all came back unremarkable including urinalysis with no UTI. CT scan of the chest, abdomen and pelvis showed Noncalcified pulmonary nodules as above, with the studies baseline recommend 6-month follow-up CT chest without contrast 2 mm nonobstructing right renal calculus Moderate left mild right renal parenchymal scar formation Extensive transpedicular thoracic and lumbar stabilization procedure with extensive lumbar laminectomy Extensive postoperative change in the soft tissue including fluid collection in the subcutaneous fatty tissue posteriorly at the T12-L2 level surrounding apparent neurostimulator leads, consider ultrasound soft tissue back follow-up to assess for seroma abscess, hematoma as clinically warranted Clinically there is no redness or tenderness to the Dilaudid pump area. Further imaging is not at this time patient is not showing any cauda equina syndrome. Patient was given 2 mg of Dilaudid IM. With mild relief of pain was noted to be awake and oriented prior to discharge. Patient data External records reviewed:: None Clinical information provided by:: patient Social determinants that could affect healthcare access:: none Patient has the following chronic illnesses:: History of extensive thoracolumbar fusion with instrumentation currently on Dilaudid How is presenting disease/condition affected by chronic disease/condition?: exacerbated by Evaluation data The following diagnostics were reviewed and interpreted by me:: lab results and radiology exam(s) Lab and/or radiology exams considered but not ordered:: None Interpretation Summary: See results MDM Medications / Prescriptions Medications or Prescriptions considered but not ordered:: None Medication administrations:: Medication Administration History Discontinued Medications Hydromorphone HCl (Hydromorphone Inj 2 Mg/Ml Vial) 2 mg IM X1 ONE Stop: 05/03/25 21:15 Last Admin: 05/03/25 21:21 Dose: 2 mg Documented By: ELIZABETH None Consultations Consultation(s) initiated? (list below): No Diagnosis Differential diagnosis back pain/injury: sciatica and thoracic back pain Most likely diagnosis given after review of the tests above:: Acute on chronic back pain Admission Indicated Admission indicated?: not indicated Admission Request Was there a request for admission?: No Disposition Plan Disposition Plan: Discharge Discharge Attestation Discharge Attestation: The patient and all family members were given an opportunity to ask questions and understood the discharge instructions. Discharge instructions specifically effects, indications for sooner follow up or return to the emergency department, and the expected course of current diagnosis. Patient condition: Stable Discharge Plan Plan Patient Disposition: HOME (Self Care) Discharge Disposition comment: Stable Prescriptions/Referrals Prescriptions/Med Rec: No Action diphenhydramine HCl 50 mg capsule 50 mg PO Q8H PRN (Reason: itching) Qty: 20 0RF estradiol 2 mg tablet 2 mg PO QDAY Patient Comments: take 1 tablet by mouth once daily trazodone 300 mg tablet 300 mg PO HS PRN (Reason: depression) propranolol 10 mg tablet 10 mg PO HS Patient Comments: take 1 tablet by mouth once daily for TREMORS montelukast 10 mg tablet 10 mg PO HS donepezil 5 mg tablet 5 mg PO HS gabapentin 400 mg capsule Patient Comments: take 1 capsule by mouth every 8 hours if needed for NEUROPATHY oxycodone-acetaminophen 10-325 mg tablet 10 - 325 tab PO Q6HR PRN (Reason: Pain (Scale Score 4-6)) Patient Comments: take 1 tablet by mouth three times a day to four times a day if needed for 30 DAYS ropinirole 2 mg tablet 2 mg PO TID Patient Comments: take 1 tablet by mouth three times a day spironolactone 100 mg tablet Patient Comments: take 1 tablet by mouth once daily levothyroxine [Synthroid] 25 mcg tablet Patient Comments: take 1 tablet by mouth once daily polyethylene glycol 3350 [HealthyLax] 17 gram Powder In Packet 17 g PO QDAY 30 Days Qty: 30 12RF nystatin 100,000 unit/gram powder 1 applic topical QDAY Qty: 60 1RF ciprofloxacin HCl [Cipro] 500 mg tablet 500 mg PO BID Qty: 14 0RF Rx Instructions: Patient is not allergic to Cipro cephalexin 500 mg capsule 500 mg PO BID Qty: 14 0RF Rx Instructions: Patient states that she is not allergic to cephalexin and has taken it in the past. potassium chloride 8 mEq capsule, extended release 8 meq PO DAILY metronidazole 500 mg tablet 500 mg PO BID furosemide 20 mg tablet 20 mg PO DAILY hydroxyzine HCl 10 mg tablet 10 mg PO TID PRN (Reason: Anxiety) venlafaxine 150 mg capsule,extended release 24hr 150 mg PO DAILY Patient Comments: TAKE 1 CAPSULE BY MOUTH EVERY DAY nifedipine 30 mg tablet extended release 30 mg PO DAILY Patient Comments: TAKE 1 TABLET BY MOUTH EVERY DAY lubiprostone 8 mcg capsule 8 mcg PO BID PRN (Reason: constipation ) Patient Comments: TAKE 1 CAPSULE BY MOUTH TWICE A DAY WITH FOOD & WITH WATER spironolactone 100 mg tablet 100 mg PO DAILY Patient Comments: TAKE 1 TABLET BY MOUTH EVERY DAY pantoprazole 20 mg tablet,delayed release (DR/EC) 40 mg PO DAILY Patient Comments: TAKE 2 TABLETS BY MOUTH EVERY DAY NEEDED FOR ACID REFLUX docusate sodium 100 mg capsule 100 mg PO HS Patient Comments: TAKE 1 CAPSULE BY MOUTH EVERY DAY AT BEDTIME NEEDED duloxetine 60 mg capsule,delayed release(DR/EC) 60 mg PO HS Patient Comments: TAKE ONE CAPSULE BY MOUTH ONCE IN THE EVENING. lidocaine 5 % adhesive patch,medicated 1 patch topical QDAY Qty: 15 0RF Rx Instructions: leave on most painful area for up to 12 hrs cyclobenzaprine 10 mg tablet 10 mg PO TID PRN (Reason: muscle spasm) Qty: 30 0RF Referrals: Ronda Panchal MD [Primary Care Provider, Family Practice] - In 1 week Problem List Clinical Impression: Chronic back pain Patient/Caregiver Discharge Instructions Discharge Activity: activity as tolerated Education Materials: Back Safety Bed Additional Instructions: Thank you for the opportunity for serving you today. You are stable for discharged . You are advised to: Follow-up with your pain specialist MD in 1 to 2 days Return to ED for worsening of symptoms Print Language: Telugu Stand Alone Forms: Shana Award Info., Patient Portal Info Letter PA/MARY Supervising Physician PA/MARY Supervising Physician: MD Nolan
[2025-05-03] MEDS: HYDROmorphone INJ 2 MG/ML VIAL IM (21:21)
[2025-05-03 21:26] VITALS: BP 142/84; PULSE 78
== END 2025-05-03 21:27 | disposition home or self-care (01) ==
PROVIDERS: Nurse Practitioner Primary Care; Emergency Provider Emergency Medicine; PCP Family Medicine
DX: G89.29 Other chronic pain (principal); M54.9 Dorsalgia, unspecified
CPT/HCPCS: 36415; 71250; 74176; 80053; 81001; 83690; 85025; 96372; 99283; J1171

== ENCOUNTER 2025-05-21 17:00 | Emergency (ER) | payer MEDICARE, SELFPAY ==
[2025-05-21 17:42] VITALS: BP 142/88; PULSE 81; RESP 18; TEMP 36.8; O2SAT 98; BMI 58.4
--- NOTE | 2025-05-21 17:42 | XR_ITS ---
Examination: Duplex scan of the lower extremity, unilateral right Date and time of exam: May 21, 2025, 1833 hours INDICATIONS: Leg cramping years Technique: Duplex scan of the extremity veins using B-mode/grayscale imaging and Doppler spectral analysis and color flow Attention is directed to internal echogenicity, compression and augmentation involving these veins, color flow assessment, spectral analysis Findings: Major deep venous structures in the extremity demonstrate normal course and caliber. There is no evidence of deep vein thrombosis. Normal color flow and spectral analysis Impression: Negative for DVT..
--- NOTE | 2025-05-21 17:42 | XR_ITS ---
Examination: CT lumbar spine, without contrast. 2-D sagittal reconstructions. 2-D coronal reconstructions. 3-D reconstructions. Date and time of exam: May 21, 2025, 1754 hours, comparison December 07, 2024 INDICATIONS: Onset lower back pain today, history spinal surgery CTDI: vol (mGy): 66.4 DLP: (mGycm): 2546 Technique: Multiple 1.25 mm axial sections of the lumbar spine have been obtained. 2-D sagittal and coronal reconstructions have been obtained. 3-D reconstructions have been obtained. Low dose protocols were performed. One or more of the following dose reduction techniques were used; automated exposure control, adjustment of the mA and/or KV according to patient size, use of iterative reconstruction technique. Findings: Severe osteopenia Extensive thoracic and lumbar transpedicular stabilization, severe chronic osteoporotic compressions L1 T11 No acute lumbar fracture Extensive lumbar laminectomies No focal thoracic or lumbar disc protrusion although extensive artifact from the transpedicular fixation screws Postoperative fluid collection, irregular in the soft tissue posterior to T11-L4 measuring up to 25 mm IMPRESSION: Severe osteopenia Extensive thoracic lumbar transpedicular stabilization Severe chronic osteoporotic compressions L1 and T11 No focal lumbar disc protrusions noted Postop irregular fluid collection in the soft tissue posterior to T11-L4, clinical correlation advised
--- NOTE | 2025-05-21 17:43 | PD.EDRME ---
Rapid Medical Screening Exam E Arrival date/time: 05/21/25 17:00 This is a case of 64-year-old female with history of charley horse and chronic low back pain came in in the emergency room due to worsening lower back pain and right lower extremities pain denies any injury or trauma Chief Complaint: Extremity Injury, Lower Time Seen by Provider: 05/21/25 17:14 Vital signs: Vital Signs Temperature 98.3 F 05/21/25 17:42 Pulse Rate 81 05/21/25 17:42 Respiratory Rate 18 05/21/25 17:42 Blood Pressure 142/88 H 05/21/25 17:42 Pulse Oximetry (%) 98 05/21/25 17:42 Oxygen Delivery Method Room Air 05/21/25 17:42 Exam: Patient is riding on a wheelchair noted tenderness on the L1 L5 mild tenderness on the right calf but no swelling Clinical Impression: Right leg pain lower back pain
[2025-05-21 18:15] LABS: Basophils # (Auto) 0.0 Thou/mm3 (0.0-0.2); Basophils % (Auto) 1 % (0-2.5); Eosinophils # (Auto) 0.2 Thou/mm3 (0.0-0.5); Eosinophils % (Auto) 3 % (0-10); Hematocrit 39.9 % (36.0-46.0); Hemoglobin 12.7 g/dL (12.0-16.0); Immature Granulocytes Auto 0.03 Thou/mm3 (0.00-0.00); Lymphocytes # (Auto) 2.0 Thou/mm3 (1.0-4.8); Lymphocytes % (Auto) 31 % (10-50); Mean Corpuscular HGB Conc 31.8 g/dl (31.0-37.0); Mean Corpuscular Hemoglobin 33.5 pg (25.0-35.0); Mean Corpuscular Volume 105 fL (80-100); Monocytes # (Auto) 0.9 Thou/mm3 (0.0-0.8); Monocytes % (Auto) 15 % (0-12); Neutrophils # (Auto) 3.2 Thou/mm3 (1.8-7.7); Neutrophils % (Auto) 50 % (37-80); Nucleated Red Blood Cell # 0.00 Thou/mm3 (0.00-0.00); Nucleated Red Blood Cell % 0 /100 WBC (0); Platelet Count 196 Thou/mm3 (140-440); RDW Standard Deviation 50.6 fL (36.4-46.3); Red Blood Count 3.79 Miln/mm3 (4.00-5.20); White Blood Count 6.4 Thou/mm3 (3.6-11.0)
[2025-05-21 18:51] LABS: Alanine Aminotransferase 17 U/L (10-49); Albumin, Serum 4.5 gm/dL (3.4-4.8); Albumin/Globulin Ratio 2.0 (1.2-2.2); Alkaline Phosphatase 86 U/L (46-116); Anion Gap 8 (7-16); Aspartate Amino Transferase 22 U/L (0-34); BUN/Creatinine Ratio 14 Ratio (12-20); Bilirubin,Total 0.2 mg/dL (0.3-1.2); Blood Urea Nitrogen 19 mg/dL (9-23); Calcium 10.2 mg/dL (8.3-10.6); Calcium (Corrected) 10.2 mg/dL (8.5-10.1); Carbon Dioxide 25.8 mMol/L (20.0-31.0); Chloride 109 mMol/L (98-107); Creatinine (Component) 1.4 mg/dL (0.6-1.3); Estimated Creatinine Clearance 57.0 mL/min (>60); Globulin 2.2 gm/dL (2.3-3.5); Glucose 104 mg/dL (74-106); Osmolality,Calculated 287 (275-295); Potassium 5.4 mMol/L (3.4-5.1); Sodium 143 mMol/L (136-145); Total Protein 6.7 gm/dL (5.7-8.2); eGFR 41 See Note
[2025-05-21 20:09] VITALS: BP 132/90; PULSE 100; RESP 18; TEMP 36.8; O2SAT 98
--- NOTE | 2025-05-21 20:13 | PD.EDRME ---
Rapid Medical Screening Exam RME Arrival date/time: 05/21/25 17:00 05/21/25 17:00 This is a case of 64-year-old female with history of charley horse and chronic low back pain came in in the emergency room due to worsening lower back pain and right lower extremities pain denies any injury or trauma Chief Complaint: Extremity Injury, Lower Time Seen by Provider: 05/21/25 17:14 Vital signs: Vital Signs Temperature 98.3 F 05/21/25 17:42 Pulse Rate 81 05/21/25 17:42 Respiratory Rate 18 05/21/25 17:42 Blood Pressure 142/88 H 05/21/25 17:42 Pulse Oximetry (%) 98 05/21/25 17:42 Oxygen Delivery Method Room Air 05/21/25 17:42 RME Narrative: 05/21/25 17:00 This is a case of 64-year-old female with history of charley horse and chronic low back pain came in in the emergency room due to worsening lower back pain and right lower extremities pain denies any injury or trauma Exam: Patient is riding on a wheelchair noted tenderness on the L1 L5 mild tenderness on the right calf but no swelling Clinical Impression: Right leg pain lower back pain
--- NOTE | 2025-05-21 20:34 | PD.EDADULT ---
ED General RME/HPI General Chief complaint: Extremity Injury, Lower Stated complaint: SERVERE LEG CRAMP Time Seen by Provider: 05/21/25 17:14 Arrival date/time: 05/21/25 17:00 CC: Bilateral lower extremity cramps and tenderness, with chronic back pain HPI ongoing for the past several days. The patient has chronic back pain has been seen multiple times for the same complaint patient denies bowel bladder symptoms saddle anesthesia numbness tingling or weakness in the lower extremities. Patient has no other complaints. RME / HPI RME / HPI narrative: 05/21/25 17:00 This is a case of 64-year-old female with history of charley horse and chronic low back pain came in in the emergency room due to worsening lower back pain and right lower extremities pain denies any injury or trauma Exam: Patient is riding on a wheelchair noted tenderness on the L1 L5 mild tenderness on the right calf but no swelling Impression: Right leg pain lower back pain Related Data Home Medications ?Medication ?Instructions ?Recorded ?Confirmed docusate sodium 100 mg capsule 100 mg PO HS 11/07/22 11/07/22 duloxetine 60 mg capsule,delayed 60 mg PO HS 11/07/22 10/29/23 release furosemide 20 mg tablet 20 mg PO DAILY 11/07/22 11/07/22 hydroxyzine HCl 10 mg tablet 10 mg PO TID PRN Anxiety 11/07/22 11/07/22 lubiprostone 8 mcg capsule 8 mcg PO BID PRN constipation 11/07/22 10/29/23 metronidazole 500 mg tablet 500 mg PO BID 11/07/22 11/07/22 nifedipine 30 mg tablet,extended 30 mg PO DAILY 11/07/22 11/07/22 release pantoprazole 20 mg tablet,delayed 40 mg PO DAILY 11/07/22 10/29/23 release potassium chloride 8 mEq 8 meq PO DAILY 11/07/22 10/29/23 capsule,extended release spironolactone 100 mg tablet 100 mg PO DAILY 11/07/22 10/29/23 venlafaxine 150 mg 150 mg PO DAILY 11/07/22 10/29/23 capsule,extended release 24 hr donepezil 5 mg tablet 5 mg PO HS 10/29/23 10/29/23 estradiol 2 mg tablet 2 mg PO QDAY 10/29/23 10/29/23 gabapentin 400 mg capsule mg 10/29/23 levothyroxine 25 mcg tablet mcg 10/29/23 (Synthroid) montelukast 10 mg tablet 10 mg PO HS 10/29/23 10/29/23 oxycodone-acetaminophen 10 mg-325 10 - 325 tab PO Q6HR PRN Pain 10/29/23 10/29/23 mg tablet (Scale Score 4-6) propranolol 10 mg tablet 10 mg PO HS 10/29/23 10/29/23 ropinirole 2 mg tablet 2 mg PO TID 10/29/23 10/30/23 spironolactone 100 mg tablet mg 10/29/23 trazodone 300 mg tablet 300 mg PO HS PRN depression 10/29/23 10/29/23 Previous Rx's ?Medication ?Instructions ?Recorded diphenhydramine HCl 50 mg capsule 50 mg PO Q8H PRN itching #20 caps 12/27/22 polyethylene glycol 3350 17 gram 17 g PO QDAY 30 days #30 ea 10/31/23 oral powder packet (HealthyLax) nystatin 100,000 unit/gram topical 1 applic topical QDAY #60 grams 07/03/24 powder ciprofloxacin HCl 500 mg tablet 500 mg PO BID Urinary tract 11/27/24 (Cipro) infection #14 tabs cyclobenzaprine 10 mg tablet 10 mg PO TID PRN muscle spasm #30 12/07/24 tabs lidocaine 5 % topical patch 1 patch topical QDAY #15 ea 12/07/24 cephalexin 500 mg capsule 500 mg PO BID #14 caps 01/25/25 magnesium oxide 500 mg capsule 500 mg PO QDAY #20 caps 05/21/25 Allergies Allergy/AdvReac Type Severity Reaction Status Date / Time ceftriaxone Allergy Severe SWELLING Verified 05/03/25 17:33 TO LIPS, VOMITING, NAUSEA ciprofloxacin (From Cipro) Allergy Severe Redness of Verified 05/03/25 17:33 Skin doxycycline Allergy Severe Abdominal Verified 05/03/25 17:33 Pain erythromycin base Allergy Severe RASH Verified 05/03/25 17:33 ibuprofen Allergy Severe SWELLING Verified 05/03/25 17:33 iodine Allergy Severe SOB, Verified 05/03/25 17:33 THROAT SWELLING, HIVES, VOMITING linezolid Allergy Severe ABD Verified 05/03/25 17:33 CRAMPING, N/V/D mushroom Allergy Severe VOMITING Verified 05/03/25 17:33 NSAIDS (Non-Steroidal Allergy Severe SWELLING, Verified 05/03/25 17:33 Anti-Inflamma SOB ondansetron Allergy Severe REDNESS Verified 05/03/25 17:33 AND PAIN AT SITE Penicillins Allergy Severe CAN'T Verified 05/03/25 17:33 BREATHE shellfish derived Allergy Severe Difficulty Verified 05/03/25 17:33 Breathing Sulfa (Sulfonamide Allergy Severe RASH Verified 05/03/25 17:33 Antibiotics) Review of Systems Review of Systems Narrative Review of Systems: GEN: No fever, no chills, no weight loss EYES: No discharge, no visual changes, no pain HEENT: No ear pain, no congestion, no sore throat PULM: No shortness of breath, no cough, no congestion CV: No chest pain, no dyspnea on exertion, no palpitations GI: No nausea, no vomiting, no diarrhea, no pain, no constipation : No frequency, no urgency, no dysuria MUSC/SKEL: No joint pain, + back pain SKIN: No rash PSYCH: No hallucinations, no depression HEME/LYMPH: No easy bleeding or bruising tendencies NEURO: No weakness, no headache Past Medical History Past Medical History NEUROLOGIC: Positive Neurological Disorders, Cerebrovascular Accident, Transient Ischemic Attacks (TIA) (per pt recalls having one many years ago), Seizures (over 5 years), Head Trauma and Spinal Cord Injury; Negative Dementia, Alzheimer's Disease, Parkinson's Disease, Brain Tumor, Meningitis, Epilepsy, Multiple Sclerosis, Cerebral Palsy, Amyotrophic Lateral Sclerosis (ALS/Cookie Gehrig's), Guillain-[place] Syndrome, Spina Bifida, Paralysis, Peripheral Neuropathy, Mcknight's Palsy, Subdural Hematoma, Migraine or Traumatic Brain Injury CARDIAC: Positive Edema, Cellulitis, Deep Vein Thrombosis (per pt its been over 5 years) and Hypertension; Negative Cardiac Disorders, Myocardial Infarction, Cardiac Arrhythmia, Atrial Fibrillation, Angina, Heart Murmur, Coronary Artery Disease, Atherosclerotic Heart Disease, Peripheral Vascular Disease, Hypercholesterolemia, Aneurysm, Congestive Heart Failure, Congenital Heart Disease, Valvular Heart Disease, Rheumatic Fever, Cardiomyopathy, Pericarditis, Hypotension or Varicose Veins RESPIRATORY: Positive Asthma and Pneumonia; Negative Chronic Obstructive Pulmonary Disease (COPD), Bronchitis, Emphysema, Pulmonary Fibrosis, Cystic Fibrosis, Tuberculosis, Pulmonary Embolism, Pulmonary Edema or Sleep Apnea GASTROINTESTINAL: Positive Gastrointestinal Disorders, Obstructive Bowel, Hiatal Hernia and Obesity; Negative Hepatitis, Cirrhosis, Pancreatitis, Celiac Disease, Gall Bladder Disease, Gastrointestinal Bleed, Esophageal Varices, Bills's Esophagus, Colitis, Ulcerative Colitis, Diverticulitis, Diverticulosis, Ulcer, Colorectal Cancer, Crohn's Disease, Hemorrhoids or Gastroesophageal Reflux Disease GENITOURINARY: Positive Genitourinary Disorders and Kidney Stones; Negative Renal Disease, Polycystic Kidney Disease, Neurogenic Bladder, Inguinal Hernia, Dialysis, Prostate Cancer or Benign Prostatic Hyperplasia REPRODUCTIVE: Positive Previous Pregnancies; Negative Breast Cancer, Endometriosis, Genital Herpes, Gonorrhea, Pelvic Inflammatory Disease, Syphilis, Testicular Cancer or Uterine Prolapse MUSCULOSKELETAL: Positive Musculoskeletal Disorders, Arthritis, Degenerative Disk Disease, Carpal Tunnel Syndrome, Fibromyalgia and Fractures (back surgeries); Negative Muscular Dystrophy, Myasthenia Gravis, Marfan's Syndrome, Bone Cancer, Rheumatoid Arthritis, Osteoporosis, Gout, Scoliosis, Degenerative Joint Disease, Osteomyelitis or Poliovirus ENT: Positive Head Trauma; Negative Cataracts, Glaucoma, Blind, Retinal Detachment, Macular Degeneration, Ear Infection, Deafness or Eye Prosthesis ENDOCRINE: Positive Hyperthyroidism; Negative Endocrine Disorders, Diabetes Mellitus Type 1, Diabetes Mellitus Type 2, Hypoglycemia, [place]'s Syndrome, Buckner's Disease, Hypothyroidism, Parathyroid Disease, Pituitary Disease, Systemic Lupus Erythematosus, Syndrome of Inappropriate Antidiuretic Hormone (SIADH), Adrenal Disease or Graves' Disease HEMATOLOGIC: Positive Blood Disorders, Anemia and Clotting Problems (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); Negative Leukemia, Hemophilia, Thalassemia or Sickle Cell Disease PSYCHO/SOCIAL: Positive Depression and Anxiety; Negative Psychiatric Problems, Schizophrenia, Recreational Drug Use, Bipolar Disorder, Behavior Problems, Self-Mutilation, Attention Deficit Disorder, Attention Deficit Hyperactivity Disorder, Depression, Post Traumatic Stress Disorder or Eating Disorder OTHER HISTORY: Positive Hospitalization, Falls, Blood Transfusions, Chicken Pox, Measles, Mumps and Rubella ([place]ian Measles); Negative Autoimmune Disease, Down Syndrome, Autism, Developmental Delay, Blood Transfusion Reaction, Anesthesia Reactions, Organ Transplant, Chemotherapy, Radiation Therapy, Hyperbaric Therapy, MRSA, Vancomycin-Resistant Enterococci, Human Immunodeficiency Virus (HIV), Pertussis, Cancer, Breast Cancer, Cervical Cancer, Colorectal Cancer, Lung Cancer, Ovarian Cancer, Prostate Cancer or Testicular Cancer Family History FAMILY HISTORY: Positive Family Psychiatric Problems, Family Respiratory Disorders, Family Cardiac Disorders, Family Gastrointestinal Problems, Family Cancer and Family Surgery; Negative Family Anesthesia Reaction Surgical History SURGICAL: Positive Ear Surgery, Eye Surgery, Abdominal Surgery, Gastric Bypass Surgery, Bowel Surgery, Joint Replacement, Tubal Ligation and Section; Negative Cardiac Surgery, Open Heart Surgery, Coronary Artery Bypass Graft, Valve Replacement, Vascular Surgery, Coronary Stent, Cardiac Catheterization, Pacemaker, Angiogram, Auto Implanted Cardiovert Defib, Carotid Endarterectomy, Endocrine Surgery, Thyroidectomy, Nose Surgery, Oral Surgery, Tonsillectomy, Adenoidectomy, Cochlear Implant, Corneal Transplant, Throat Surgery, Tracheostomy, Gastrostomy, Nephrectomy, Transurethral Resection, Amputation, Open Reduction Internal Fixation, Arthroscopy, Neurologic Surgery, Brain Shunt, Mastectomy, Lumpectomy, Hysterectomy or Organ Transplant Social History SMOKING STATUS: Never smoker SECOND HAND EXPOSURE: No SUBSTANCE USE: does not use ED Exam Narrative Physical exam: [General: Morbidly obese obese not in any acute distress Head normocephalic HEENT: Within acceptable limits Neck is supple nontender Chest equal chest rise nontender to palpation Respiratory: Clear to auscultation no wheezes crackles or rubs CV: Rate rhythm is regular no murmurs rubs or clicks Abdomen is grossly distended secondary to body habitus soft nontender no masses positive bowel sounds all 4 quadrants Back: No CVA tenderness no spinous process tenderness from cervical spine thoracic and lumbar spine Skin: Intact no petechiae rash induration ulceration or crepitus Extremities: Decreased range of motion secondary to pain. Moving all other extremities against resistance cap refill less than 2 seconds neurosensory intact Neuro: Awake alert oriented x3 Glascow coma 15 no focal deficits] Course Quality Measures none Orders Category Date Time Status CT lumbar spine wo con Stat Exams 05/21/25 17:42 Completed US venous doppler LE RT Stat Exams 05/21/25 17:42 Completed CBC Stat Lab 05/21/25 18:07 Completed CMP [Comprehensive Metabolic Panel] Stat Lab 05/21/25 18:07 Completed Vital Signs Vital signs: Vital Signs Temperature 98.3 F 05/21/25 17:42 Pulse Rate 81 05/21/25 17:42 Respiratory Rate 18 05/21/25 17:42 Blood Pressure 142/88 H 05/21/25 17:42 Pulse Oximetry (%) 98 05/21/25 17:42 Oxygen Delivery Method Room Air 05/21/25 17:42 Discharge Plan Plan Patient Disposition: HOME (Self Care) Patient condition on transfer: Stable Prescriptions/Referrals Prescriptions/Med Rec: New magnesium oxide 500 mg capsule 500 mg PO QDAY Qty: 20 0RF No Action diphenhydramine HCl 50 mg capsule 50 mg PO Q8H PRN (Reason: itching) Qty: 20 0RF estradiol 2 mg tablet 2 mg PO QDAY Patient Comments: take 1 tablet by mouth once daily trazodone 300 mg tablet 300 mg PO HS PRN (Reason: depression) propranolol 10 mg tablet 10 mg PO HS Patient Comments: take 1 tablet by mouth once daily for TREMORS montelukast 10 mg tablet 10 mg PO HS donepezil 5 mg tablet 5 mg PO HS gabapentin 400 mg capsule Patient Comments: take 1 capsule by mouth every 8 hours if needed for NEUROPATHY oxycodone-acetaminophen 10-325 mg tablet 10 - 325 tab PO Q6HR PRN (Reason: Pain (Scale Score 4-6)) Patient Comments: take 1 tablet by mouth three times a day to four times a day if needed for 30 DAYS ropinirole 2 mg tablet 2 mg PO TID Patient Comments: take 1 tablet by mouth three times a day spironolactone 100 mg tablet Patient Comments: take 1 tablet by mouth once daily levothyroxine [Synthroid] 25 mcg tablet Patient Comments: take 1 tablet by mouth once daily polyethylene glycol 3350 [HealthyLax] 17 gram Powder In Packet 17 g PO QDAY 30 Days Qty: 30 12RF nystatin 100,000 unit/gram powder 1 applic topical QDAY Qty: 60 1RF ciprofloxacin HCl [Cipro] 500 mg tablet 500 mg PO BID Qty: 14 0RF Rx Instructions: Patient is not allergic to Cipro cephalexin 500 mg capsule 500 mg PO BID Qty: 14 0RF Rx Instructions: Patient states that she is not allergic to cephalexin and has taken it in the past. potassium chloride 8 mEq capsule, extended release 8 meq PO DAILY metronidazole 500 mg tablet 500 mg PO BID furosemide 20 mg tablet 20 mg PO DAILY hydroxyzine HCl 10 mg tablet 10 mg PO TID PRN (Reason: Anxiety) venlafaxine 150 mg capsule,extended release 24hr 150 mg PO DAILY Patient Comments: TAKE 1 CAPSULE BY MOUTH EVERY DAY nifedipine 30 mg tablet extended release 30 mg PO DAILY Patient Comments: TAKE 1 TABLET BY MOUTH EVERY DAY lubiprostone 8 mcg capsule 8 mcg PO BID PRN (Reason: constipation ) Patient Comments: TAKE 1 CAPSULE BY MOUTH TWICE A DAY WITH FOOD & WITH WATER spironolactone 100 mg tablet 100 mg PO DAILY Patient Comments: TAKE 1 TABLET BY MOUTH EVERY DAY pantoprazole 20 mg tablet,delayed release (DR/EC) 40 mg PO DAILY Patient Comments: TAKE 2 TABLETS BY MOUTH EVERY DAY NEEDED FOR ACID REFLUX docusate sodium 100 mg capsule 100 mg PO HS Patient Comments: TAKE 1 CAPSULE BY MOUTH EVERY DAY AT BEDTIME NEEDED duloxetine 60 mg capsule,delayed release(DR/EC) 60 mg PO HS Patient Comments: TAKE ONE CAPSULE BY MOUTH ONCE IN THE EVENING. lidocaine 5 % adhesive patch,medicated 1 patch topical QDAY Qty: 15 0RF Rx Instructions: leave on most painful area for up to 12 hrs cyclobenzaprine 10 mg tablet 10 mg PO TID PRN (Reason: muscle spasm) Qty: 30 0RF Referrals: Ronda Panchal MD [Primary Care Provider, Family Practice] - In 1 week Problem List Clinical Impression: Bilateral leg cramps, Morbid obesity, Chronic back pain Patient/Caregiver Discharge Instructions Other Activity Instructions:: Try the magnesium for leg cramps, follow-up with your primary care doctor. Print Language: Icelandic Stand Alone Forms: [employer] Award Info., Patient Portal Info Letter, Work/School Release PA/TEST CENTER MANAGER Supervising Physician PA/TEST CENTER MANAGER Supervising Physician: Michael Lock ENP [facility] Clinical Information Provided by: patient Medical Records reviewed [facility] Meds/Rx considered, not ordered None Labs/Rad/Tests considered, not ordered None Chronic Illness/Social Conditions Explain: Chronic back pain morbid obesity EKG EKG not done Labs Labs: interpreted by me Lab(s) Interpretation(s): CBC shows no acute leukocytosis anemia thrombocytopenia CMP shows a potassium of 5.4 chloride of 109 creatinine of 1.4 note these are all consistent with prior lab draws No transaminitis or T. bili elevation. Imaging Imaging interpretation: interpreted by sd Imaging Interpretation(s): Lumbar CT is basically no change from November showing laminectomy in the lumbar region. Medication Administration(s) none Diagnosis Differential Diagnosis ED Complaint MDM: Leg cramps DVT acute on chronic low back pain
[2025-05-21] MEDS: MAGNESIUM OXIDE 400 MG TABLET PO (20:51)
== END 2025-05-21 21:01 | disposition home or self-care (01) ==
PROVIDERS: Nurse Practitioner Family; Emergency Provider Emergency Medicine; PCP Family Medicine
DX: R25.2 Cramp and spasm (principal); M54.50 Low back pain, unspecified; G89.29 Other chronic pain; E66.01 Morbid (severe) obesity due to excess calories; Z68.43 Body mass index [BMI] 50.0-59.9, adult
CPT/HCPCS: 36415; 72131; 80053; 85025; 93971; 99283; A9270